=== PATIENT | female | born 1980 | race Caucasian/White ===

== ENCOUNTER → 2019-03-02 | Outpatient (CLI) | payer OTHER, SELFPAY ==
[2019-03-02 12:48] LABS: Absolute Lymphocyte Count 1.42 X10^3/ul (0.83-4.51); Absolute Neutrophil Count 4.1 X10^3/uL (2.0-7.7); Basophil# 0.03 X10^3/uL; Basophil% 0.5 % (0-1); Eosinophil# 0.19 X10^3/uL; Eosinophils% 3.1 % (0-5); Hematocrit 40.3 % (37-47); Hemoglobin 13.5 g/dl (12.0-15.0); Lymphocyte # 1.42 X10^3/ul (4.0); Mean Corp Hgb Conc 33.5 g/gl (32-36); Mean Corpuscular Hgb 30.3 pg (27.0-32.0); Mean Corpuscular Volume 90.6 fL (81-99); Monocyte# 0.45 X10^3/uL; Monocyte% 7.3 % (0-10); Neutrophil # 4.07 X10^3/uL (2.7-7.7); Neutrophil % 65.9 % (47-70); Platelet Count 211 K/mm3 (150-450); RBC Distribution Width CV 12.4 % (11.6-14.6); Red Blood Count 4.45 M/mm3 (4.2-5.4); White Blood Count 6.2 K/mm3 (4.4-11.0)
[2019-03-02 12:49] LABS: POSITIVE COUNT NO; POSITIVE DIFFERENTIAL NO; POSITIVE MORPHOLOGY NO
[2019-03-02 13:19] LABS: ALB/GLOB Ratio 1.4 RATIO (0.9-2.4); AST(SGOT) 13 U/L (15-37); Alanine Aminotransfer ALT/SGPT 17 U/L (13-56); Albumin, Serum 4.3 g/dL (3.2-5.0); Alkaline Phosphatase 44 U/L (45-117); Anion Gap 6 (5-15); BUN 13 mg/dL (7-18); BUN/Creat Ratio 16.6 RATIO (10-20); Calcium,Total 9.2 mg/dL (8.5-10.1); Chloride 105 mmol/L (98-107); Creatinine, Serum 0.78 mg/dL (0.55-1.02); EST Glomerular Filtration Rate 88 mL/min (>60); Est Glom Filt Rate - Afr Amer 106 mL/min (>60); Glucose 91 mg/dL (74-106); Potassium 3.9 mmol/L (3.5-5.1); Protein, Total 7.3 g/dL (6.4-8.2); Sodium Level 140 mmol/L (136-145)
== END | disposition home or self-care (01) ==
LOC: MFPLAB 10:22
PROVIDERS: Family Provider Family Medicine; PCP Family Medicine; Referring Provider Family Medicine; Visit Provider Family Medicine
DX: R53.81 Other malaise (principal); R53.83 Other fatigue
CPT/HCPCS: 36415; 80053; 84443; 85025

== ENCOUNTER → 2019-04-20 | Outpatient (CLI) | payer OTHER, SELFPAY | END | disposition home or self-care (01) | PROVIDERS: Family Provider Family Medicine; PCP Family Medicine; Referring Provider Family Medicine; Visit Provider Family Medicine | DX: G47.10 Hypersomnia, unspecified (principal); R53.81 Other malaise; R53.83 Other fatigue | CPT/HCPCS: 95810 ==

== ENCOUNTER → 2021-06-03 10:39 | Outpatient (CLI) | payer OTHER, SELFPAY ==
--- NOTE | 2021-06-03 11:21 | RAD_ITS ---
STUDY: X-RAY - ABDOMEN/PELVIS REASON FOR EXAM: Female, 41 years old. CONSTIPATION TECHNIQUE: AP supine and upright views of the abdomen and pelvis. COMPARISON: None. FINDINGS: Normal visualized lung bases. There is an unremarkable bowel gas pattern. There is no demonstrated free abdominal air. The visualized liver, spleen and kidneys are grossly normal in size and morphology. An IUD is seen within the pelvis. Normal visualized osseous structures. RAD/Abd Inc Decub and/or Erect IMPRESSION: Normal x-ray examination of the abdomen and pelvis. Electronically Signed: Koko Velasco MD at 14:30 EDT , Service support ,
[2021-06-03 12:08] LABS: Absolute Lymphocyte Count 1.45 X10^3/uL (0.83-4.51); Absolute Neutrophil Count 5.6 X10^3/uL (2.0-7.7); Basophil# 0.04 X10^3/uL; Basophil% 0.5 % (0-1); Eosinophil# 0.17 X10^3/uL; Eosinophils% 2.2 % (0-5); Hematocrit 44.4 % (37-47); Hemoglobin 14.5 g/dL (12.0-15.0); Lymphocyte # 1.45 X10^3/ul (0.83-4.51); Lymphocyte % 18.5 % (19-41); Mean Corp Hgb Conc 32.7 g/dL (32-36); Mean Corpuscular Hgb 29.8 pg (27.0-32.0); Mean Corpuscular Volume 91.4 fL (81-99); Mean Platelet Vol. 12.3 fl (6.2-12.0); Monocyte# 0.57 X10^3/uL; Monocyte% 7.3 % (0-10); NRBC Flagged by Analyzer 0 % (0-5); Neutrophil # 5.57 X10^3/uL (2.7-7.7); Neutrophil % 71.2 % (47-70); Platelet Count 229 K/mm3 (150-450); RBC Distribution Width CV 11.8 % (11.6-14.6); RBC Distribution Width SD 39.5 fl (35.1-43.9); Red Blood Count 4.86 M/mm3 (4.2-5.4); White Blood Count 7.8 K/mm3 (4.4-11.0)
[2021-06-03 12:22] LABS: ALB/GLOB Ratio 1.1 RATIO (0.9-2.4); AST(SGOT) 12 U/L (15-37); Alanine Aminotransfer ALT/SGPT 21 U/L (13-56); Albumin, Serum 4.3 g/dL (3.2-5.0); Alkaline Phosphatase 53 U/L (45-117); Anion Gap 6 (5-15); BUN 11 mg/dL (7-18); BUN/Creat Ratio 12.5 RATIO (10-20); Calcium,Total 9.2 mg/dL (8.5-10.1); Chloride 103 mmol/L (98-107); Creatinine, Serum 0.88 mg/dL (0.55-1.02); EST Glomerular Filtration Rate 76 mL/min (>60); Est Glom Filt Rate - Afr Amer 92 mL/min (>60); Globulin 3.8 g/dL (2.2-4.2); Glucose 94 mg/dL (74-106); Lipase 89 U/L (73-393); Protein, Total 8.1 g/dL (6.4-8.2); Sodium Level 138 mmol/L (136-145)
== END ==
PROVIDERS: PCP Family Medicine; Referring Provider Nurse Practitioner Family; Visit Provider Nurse Practitioner Family
DX: R10.9 Unspecified abdominal pain (principal)
CPT/HCPCS: 36415; 74019; 80053; 83690; 85025

== ENCOUNTER 2021-12-11 16:10 | Outpatient (CLI) | payer OTHER, SELFPAY ==
[2021-12-11 17:52] LABS: Absolute Lymphocyte Count 1.81 X10^3/uL (0.83-4.51); Absolute Neutrophil Count 5.8 X10^3/uL (2.0-7.7); Basophil# 0.03 X10^3/uL; Basophil% 0.3 % (0-1); Eosinophil# 0.28 X10^3/uL; Eosinophils% 3.3 % (0-5); Hematocrit 41.6 % (37-47); Hemoglobin 13.7 g/dL (12.0-15.0); Lymphocyte # 1.81 X10^3/ul (0.83-4.51); Mean Corp Hgb Conc 32.9 g/dL (32-36); Mean Corpuscular Hgb 30.1 pg (27.0-32.0); Mean Corpuscular Volume 91.4 fL (81-99); Mean Platelet Vol. 11.8 fl (6.2-12.0); Monocyte# 0.66 X10^3/uL; Monocyte% 7.7 % (0-10); NRBC Flagged by Analyzer 0 % (0-5); Neutrophil % 67.5 % (47-70); Platelet Count 234 K/mm3 (150-450); RBC Distribution Width SD 40.3 fl (35.1-43.9); Red Blood Count 4.55 M/mm3 (4.2-5.4); White Blood Count 8.6 K/mm3 (4.4-11.0)
[2021-12-11 18:32] LABS: ALB/GLOB Ratio 1.3 RATIO (0.9-2.4); AST(SGOT) 14 U/L (15-37); Alanine Aminotransfer ALT/SGPT 19 U/L (13-56); Albumin, Serum 4.2 g/dL (3.2-5.0); Alkaline Phosphatase 61 U/L (45-117); Anion Gap 5 (5-15); BUN 14 mg/dL (7-18); BUN/Creat Ratio 17.2 RATIO (10-20); Calcium,Total 9.4 mg/dL (8.5-10.1); Chloride 104 mmol/L (98-107); Creatinine, Serum 0.82 mg/dL (0.55-1.02); EST Glomerular Filtration Rate 83 mL/min (>60); Est Glom Filt Rate - Afr Amer 100 mL/min (>60); Globulin 3.3 g/dL (2.2-4.2); Glucose 85 mg/dL (74-106); Potassium 3.9 mmol/L (3.5-5.1); Protein, Total 7.5 g/dL (6.4-8.2); Sodium Level 138 mmol/L (136-145)
== END 2021-12-11 23:59 | disposition short-term general hospital (02) ==
LOC: MFPLAB 16:13
PROVIDERS: PCP Family Medicine; Referring Provider Family Medicine; Visit Provider Family Medicine
DX: R11.0 Nausea (principal); R51.9 Headache, unspecified
CPT/HCPCS: 36415; 80053; 85025

== ENCOUNTER → 2022-06-22 | Outpatient (CLI) | payer OTHER, SELFPAY ==
--- NOTE | 2022-06-22 16:14 | BI_ITS ---
MAMMOGRAPHY - BILATERAL SCREENING REASON FOR EXAM: Female, 42 years old. Routine annual screening examination. PERTINENT HISTORY: Aunt with breast cancer. TECHNIQUE: Digital bilateral breast destinee (3D mammographic acquisition) in the CC and MLO projections. 2-D mediolateral oblique (MLO) and craniocaudad (CC) views of both breasts were obtained. CAD: Full Field Digital Mammography with Computer Added Detection was performed. COMPARISON: None. Baseline examination. FINDINGS: Breast Composition: There are scattered areas of fibroglandular density. There are no dominant masses or suspicious calcifications. Benign-appearing bilateral axillary lymph No other significant abnormalities are identified. BI/SCRN MAMM (CAD)W/DESTINEE BILAT IMPRESSION: Negative screening mammogram. Yearly followup mammogram recommended. (A) ASSESSMENT CATEGORY: BIRADS Category 2: Benign. A letter regarding these results will be sent to the patient by the facility within 30 days. Approximately 10% of breast cancers are not detected by mammography. A normal mammogram should not delay biopsy of a clinically suspicious abnormality. [id number] Electronically Signed: Koko Velasco MD at 8:22 EDT ,
== END | disposition home or self-care (01) ==
LOC: OPBI 16:11
PROVIDERS: PCP Family Medicine; Visit Provider Family Medicine
DX: Z12.31 Encounter for screening mammogram for malignant neoplasm of breast (principal)
CPT/HCPCS: 77063; 77067

== ENCOUNTER → 2022-09-08 | Outpatient (CLI) | payer OTHER, SELFPAY ==
[2022-09-08 18:01] LABS: Mucous, Urine 0 SEEN /hpf (<or=2+); Squamous Epithelial Cells - UA 0 SEEN /hpf (5-10)
[2022-09-08 18:14] LABS: Color, Urine Yellow (Yellow); Glucose, Dipstick Normal (Normal); Ketone-Dipstick Negative (Negative); Leukocyte Esterase-Dipstick 500 /ul (Negative); Nitrite-Dipstick Positive (Negative); Occult Blood-Urine 50 /ul (Negative); Protein-Dipstick 15 mg/dl (Negative); Urine Bilirubin Dipstick Negative (Negative); Urine Clarity Sl. Cloudy (Clear); Urine Urobilinogen Normal (Normal)
[2022-09-08 18:25] LABS: Bacteria 2+ /hpf (None Seen); Red Blood Cells-Urine 0-5 SEEN /hpf (0-5); White Blood Cells 5-10 SEEN /hpf (0-5)
== END | disposition home or self-care (01) ==
PROVIDERS: PCP Family Medicine; Visit Provider Nurse Practitioner Family
DX: N39.0 Urinary tract infection, site not specified (principal)
CPT/HCPCS: 81001; 87077; 87086; 87088; 87186

== ENCOUNTER → 2023-05-19 | Outpatient (CLI) | payer OTHER, SELFPAY ==
[2023-05-19 17:38] LABS: Absolute Lymphocyte Count 1.61 X10^3/uL (0.83-4.51); Absolute Neutrophil Count 4.4 X10^3/uL (2.0-7.7); Basophil# 0.05 X10^3/uL; Basophil% 0.7 % (0-1); Eosinophil# 0.31 X10^3/uL; Eosinophils% 4.5 % (0-5); Hemoglobin 13.9 g/dL (12.0-15.0); Lymphocyte # 1.61 X10^3/ul (0.83-4.51); Lymphocyte % 23.5 % (19-41); Mean Corp Hgb Conc 32.3 g/dL (32-36); Mean Corpuscular Hgb 30.3 pg (27.0-32.0); Mean Corpuscular Volume 93.7 fL (81-99); Mean Platelet Vol. 12.1 fl (6.2-12.0); Monocyte# 0.52 X10^3/uL; Monocyte% 7.6 % (0-10); NRBC Flagged by Analyzer 0 % (0-5); Neutrophil # 4.36 X10^3/uL (2.7-7.7); Neutrophil % 63.6 % (47-70); Platelet Count 223 K/mm3 (150-450); RBC Distribution Width CV 12.1 % (11.6-14.6); RBC Distribution Width SD 41.7 fl (35.1-43.9); Red Blood Count 4.59 M/mm3 (4.2-5.4); White Blood Count 6.9 K/mm3 (4.4-11.0)
[2023-05-19 18:18] LABS: Hemoglobin A1c 5.4 % (3.8-5.6)
[2023-05-19 18:45] LABS: ALB/GLOB Ratio 1.1 RATIO (0.9-2.4); AST(SGOT) 13 U/L (15-37); Alanine Aminotransfer ALT/SGPT 20 U/L (13-56); Alkaline Phosphatase 55 U/L (45-117); Anion Gap 5 (5-15); BUN 10 mg/dL (7-18); BUN/Creat Ratio 11.6 RATIO (10-20); Calcium,Total 9.3 mg/dL (8.5-10.1); Chloride 105 mmol/L (98-107); Cholesterol 166 mg/dL (200); Creatinine, Serum 0.86 mg/dL (0.55-1.02); EST Glomerular Filtration Rate 77 mL/min (>60); Est Glom Filt Rate - Afr Amer 93 mL/min (>60); Globulin 3.8 g/dL (2.2-4.2); Glucose 101 mg/dL (74-106); High Density Lipoprotein 43 mg/dL; Potassium 3.9 mmol/L (3.5-5.1); Protein, Total 7.8 g/dL (6.4-8.2); Sodium Level 138 mmol/L (136-145); Thyroid Stim Hormone (TSH) 1.25 uIU/mL (0.358-3.74); Triglycerides 123 mg/dL; Very Low Density Lipoprotein 25 mg/dL (5-40)
== END | disposition home or self-care (01) ==
LOC: MFPLAB 15:30
PROVIDERS: PCP Family Medicine; Visit Provider Family Medicine
DX: Z00.00 Encounter for general adult medical examination without abnormal findings (principal); Z13.0 Encounter for screening for diseases of the blood and blood-forming organs and certain disorders involving the immune mechanism; Z13.29 Encounter for screening for other suspected endocrine disorder; Z13.220 Encounter for screening for lipoid disorders
CPT/HCPCS: 36415; 80053; 80061; 83036; 84443; 85025

== ENCOUNTER → 2023-06-24 | Outpatient (CLI) | payer OTHER, SELFPAY ==
--- NOTE | 2023-06-24 10:45 | BI_ITS ---
MAMMOGRAPHY - BILATERAL SCREENING REASON FOR EXAM: Female, 43 years old. Routine annual screening examination. PERTINENT HISTORY: Aunt with breast cancer. TECHNIQUE: Digital bilateral breast destinee (3D mammographic acquisition) in the CC and MLO projections. 2-D mediolateral oblique (MLO) and craniocaudad (CC) views of both breasts were obtained. CAD: Full Field Digital Mammography with Computer Added Detection was performed. COMPARISON: Comparison is made with prior study dated June 22, 2022. FINDINGS: Breast Composition: There are scattered areas of fibroglandular density. There are no dominant masses or suspicious calcifications. Stable small bilateral axillary lymph nodes. No other significant abnormalities are identified. There has been no significant change since the prior study. BI/SCRN MAMM (CAD)W/DESTINEE BILAT IMPRESSION: Stable bilateral screening mammogram. Yearly follow-up mammogram recommended. (A) ASSESSMENT CATEGORY: BIRADS Category 2: Benign. A letter regarding these results will be sent to the patient by the facility within 30 days. Approximately 10% of breast cancers are not detected by mammography. A normal mammogram should not delay biopsy of a clinically suspicious abnormality. [id number] Electronically Signed: Koko Velasco MD at 12:46 EDT ,
== END | disposition home or self-care (01) ==
PROVIDERS: PCP Family Medicine; Referring Provider Family Medicine; Visit Provider Family Medicine
DX: Z12.31 Encounter for screening mammogram for malignant neoplasm of breast (principal)
CPT/HCPCS: 77063; 77067

== ENCOUNTER 2023-12-22 16:30 | Outpatient (RCR) | payer OTHER, SELFPAY ==
--- NOTE | 2023-11-17 17:40 | HP.PTEVAL_ITS ---
Patient's Visit Information Visit Information Visit Information: NELA CALLES is a 43 year old F referred to Physical Therapy by Dr. Wes Rowell MD with a diagnosis of B knee pain.R>L. Date of Evaluation: 11/17/23 Physical Therapist: Edd Wilder, DPT, OCS, CSCS Visit Plan Frequency: 3x /Week Duration: 4-6 Weeks Plan: 3x/week for 4-6 weeks as needed for. 1. ext ROM attempting full ext without pain, HS stretch 2. WB strength B knees and hips to tolerance, progress to functional and gym return to skiing, funciton of steps, squatting as tolerated by R knee. ice as needed. Monitor tolerance to full extension Given QS, HS and SLRx3 for HEP 2x/day monitor for meniscal tear evidence Subjective Subjective: Injured self skiing in [place] 10/30(was just walking in skis and splits). Next day getting out of bed very painful and needed help to bathroom and hard time standing. ER x ray and no fractures. Gave braces and meds and felt good. A week later weaned off meds and braces. Now doing all daily duties but is feeling weak on uneven surface. No real pain now. Limps a little. R knee is the problem although both hurt at first. 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 Avoids skiing. Basic ADLs are all fine, might be unstable at times. No regular exercises. Wants to get back on slopes. dr. Rowell thinks she is Ok in the MCL but suspicious of meniscus L knee 95% better. Objective Objective: R knee hurts to fully extend and she avoids this in her gait pattern and exercises. Can walk normally otherwise. trasnfers I bed and chair. Steps are reciprocal but poor strength adn confidence descending with R. AROM R knee0-140 and L knee 0-142, no pain end flexion but pain and protective of full extension. + bounce home, - ant drawer, - post sag, - pivot shift, - valgus and varus. all on R, L is OK. patella moves well adn without much pain. HS mod tight at -20 90/90 test, no problem in quad. reflexes 2/3 patella and achilles sensation LE WNL to gross light touch. strength is 3+ R knee ext adn 4- R knee flexion and 4/5 L knee hip is 3+ abd and ext and 4- flexion without pain B. ankles are 4+ B without pain. Balance/Special Test Scores Lower Extremity Functional Score: 67 Goals Goal 1:: Full aROM R knee without pain or protectiveness. Goal Time Frame: 4-6 Weeks Goal 2:: patient descend steps without hesitation or weakness. Goal Time Frame: 4-6 Weeks Goal 3:: I approp HEP to limit future problems Goal Time Frame: 4-6 Weeks Goal 4:: pt feel 99% better and activities, 78 LEFFS Goal Time Frame: 4-6 Weeks Goal 5:: Plan to return to skiing Goal Time Frame: 4-6 Weeks Rehabilitation Potential Physical Therapy Diagnosis: R knee pain limiting confidence and function. Rehabilitation Potential: Fair Anticipated Interventions Patient/Client Instruction: Educate patient on: Condition and Risk Factors For the Purpose of:: To decrease pain, To decrease swelling/inflammation, To increase ROM, To improve nutrient delivery to tissue, To improve muscle performance and motor function and To increase tolerance to activity/condition/position Therapeutic Exercise to Include: Strength training, Balance training, Flexibilty training and Gait and locomotor training Comment: return to sport For the Purpose of:: To decrease pain, To decrease swelling/inflammation, To increase ROM, To improve nutrient delivery to tissue, To improve muscle performance and motor function and To increase tolerance to activity/condition/position Manual Therapy Techniques to Include: Passive ROM For the Purpose of:: To decrease pain, To decrease swelling/inflammation and To improve nutrient delivery to tissue Cryotherapy (ice pack, ice massage): Yes For the Purpose of:: To decrease pain, To decrease swelling/inflammation and To improve nutrient delivery to tissue Text: Thank you for the opportunity to evaluate your patient. For Medicare and Medicare HMO plans, please review the plan of care and approve it. It will need to be FAXED BACK to us at [phone] for Medicare purposes. For Medicare only, by signing this I certify the plan of care. Please let me know if there are questions or concerns regarding this plan of care. Physician Signature: Date:
--- NOTE | 2023-12-22 17:09 | HP.PTDCSUM ---
Discharge Summary D/C summary: It has been my pleasure to treat NELA CALLES referred by Dr. Wes Rowell MD, with the diagnosis of B knee pain.R>L for a total of 13 visit(s). Discharge Date: 12/22/23 Please see the following information for a summary of their discharge status. Subjective Subjective: Has been skiing and it was fine on the knee. Skiied for 3 hours and was fine. Will continue workout 2x/week. Pain R knee: Pain Intensity (Out of 10): 0 Overall Improvement % Improvement: 100 Objective Objective/Function: Doing great 100% better, full ROM, skiiing without difficulty and will continue workout in gym 2x/week. Goals Goal 1:: Full aROM R knee without pain or protectiveness. Goal Progress: Goal Met Goal 2:: patient descend steps without hesitation or weakness. Goal Progress: Goal Met Goal 3:: I approp HEP to limit future problems Goal Progress: Goal Met Goal 4:: pt feel 99% better and activities, 78 LEFFS Goal Progress: 100 Goal 5:: Plan to return to skiing Goal Progress: Goal Met Plan Plan: d/c D/C Information Discharge Comments: Doing well and will continue gym exercises. Will contact doctor if pain returns. d/c sentence: If there are questions or concerns regarding this patient's physical therapy, please feel free to call me at [phone]. Thank you for the referral of this patient. Sincerely, Edd Wilder, DPT, OCS, CSCS Balance/Gait/Functional tests Balance/Special Test Scores Lower Extremity Functional Score: 80 Improvement % Improvement: 100
== END 2023-12-22 19:00 | disposition home or self-care (01) ==
LOC: PT 16:30
PROVIDERS: PCP Family Medicine; Referring Provider Orthopaedic Surgery Sports Medicine; Visit Provider Orthopaedic Surgery Sports Medicine
DX: M25.561 Pain in right knee (principal); M25.562 Pain in left knee
CPT/HCPCS: 97110; 97113; 97161; 97530

== ENCOUNTER → 2024-06-26 | Outpatient (CLI) | payer OTHER, SELFPAY ==
--- NOTE | 2024-06-26 07:51 | BI_ITS ---
MAMMOGRAPHY - BILATERAL SCREENING REASON FOR EXAM: Female, 44 years old. Routine annual screening examination. PERTINENT HISTORY: Aunt with breast cancer. TECHNIQUE: Digital bilateral breast destinee (3D mammographic acquisition) in the CC and MLO projections. 2-D mediolateral oblique (MLO) and craniocaudad (CC) views of both breasts were obtained. CAD: Full Field Digital Mammography with Computer Added Detection was performed. COMPARISON: Comparison is made with prior study dated June 24, 2023 and June 22, 2022. FINDINGS: Breast Composition: There are scattered areas of fibroglandular density. There are no dominant masses or suspicious calcifications. Stable small bilateral benign appearing axillary lymph nodes. No other significant abnormalities are identified. There has been no significant change since the prior study. BI/SCRN MAMM (CAD)W/DESTINEE BILAT IMPRESSION: Stable bilateral screening mammogram. Yearly follow-up mammogram recommended. (A) ASSESSMENT CATEGORY: BIRADS Category 2: Benign. A letter regarding these results will be sent to the patient by the facility within 30 days. Approximately 10% of breast cancers are not detected by mammography. A normal mammogram should not delay biopsy of a clinically suspicious abnormality. [id number] Electronically Signed: Koko Velasco MD at 8:31 EDT ,
== END | disposition home or self-care (01) ==
LOC: OPBI 07:50
PROVIDERS: PCP Nurse Practitioner Family; Referring Provider Nurse Practitioner Family; Visit Provider Nurse Practitioner Family
DX: Z12.31 Encounter for screening mammogram for malignant neoplasm of breast (principal)
CPT/HCPCS: 77063; 77067

== ENCOUNTER → 2024-11-27 | Outpatient (CLI) | payer OTHER, SELFPAY ==
[2024-11-27 10:57] LABS: Absolute Lymphocyte Count 1.75 X10^3/uL (0.83-4.51); Absolute Neutrophil Count 5.1 X10^3/uL (2.0-7.7); Basophil# 0.06 X10^3/uL; Basophil% 0.8 % (0-1); Eosinophil# 0.22 X10^3/uL; Eosinophils% 2.9 % (0-5); Hemoglobin 14.4 g/dL (12.0-15.0); Lymphocyte # 1.75 X10^3/ul (0.83-4.51); Lymphocyte % 22.8 % (19-41); Mean Corp Hgb Conc 33.5 g/dL (32-36); Mean Corpuscular Hgb 30.5 pg (27.0-32.0); Mean Corpuscular Volume 91.1 fL (81-99); Mean Platelet Vol. 11.4 fl (6.2-12.0); Monocyte# 0.53 X10^3/uL; Monocyte% 6.9 % (0-10); NRBC Flagged by Analyzer 0 % (0-5); Neutrophil # 5.11 X10^3/uL (2.7-7.7); Neutrophil % 66.3 % (47-70); Platelet Count 235 K/mm3 (150-450); RBC Distribution Width CV 12.2 % (11.6-14.6); RBC Distribution Width SD 40.3 fl (35.1-43.9); Red Blood Count 4.72 M/mm3 (4.2-5.4); White Blood Count 7.7 K/mm3 (4.4-11.0)
[2024-11-27 11:28] LABS: T3 Total - Triiodothyronine 0.91 ng/mL (0.6-1.81)
[2024-11-27 11:34] LABS: T4 Total, Thyroxin 9.8 ug/dL (4.8-13.9)
[2024-11-28 08:10] LABS: Thyroid Peroxidase AB 14 IU/mL (0-34)
== END | disposition home or self-care (01) ==
PROVIDERS: PCP Nurse Practitioner Family
DX: H40.053 Ocular hypertension, bilateral (principal)
CPT/HCPCS: 36415; 84436; 84443; 84480; 85025; 86376

== ENCOUNTER → 2025-07-01 | Outpatient (CLI) | payer OTHER, SELFPAY ==
[2025-07-01 17:47] LABS: Hematocrit 35.7 % (37-47); Hemoglobin 12.1 g/dL (12.0-15.0); Immature Granulocytes Count 0.030 X10^3/uL (0.0-0.0); Mean Corp Hgb Conc 33.9 g/dL (32-36); Mean Corpuscular Volume 89.9 fL (81-99); Mean Platelet Vol. 12.1 fl (6.2-12.0); NRBC Flagged by Analyzer 0 % (0-5); Platelet Count 168 K/mm3 (150-450); RBC Distribution Width CV 11.9 % (11.6-14.6); RBC Distribution Width SD 39.4 fl (35.1-43.9); Red Blood Count 3.97 M/mm3 (4.2-5.4); White Blood Count 6.6 K/mm3 (4.4-11.0)
[2025-07-01 18:17] LABS: AST(SGOT) 23 U/L (<=31); Alanine Aminotransfer ALT/SGPT 25 U/L (<=34); Albumin, Serum 4.0 g/dL (3.5-5.0); Alkaline Phosphatase 60 U/L (35-104); Anion Gap 11 (5-15); BUN 13 mg/dL (4-19); BUN/Creat Ratio 15.5 RATIO (10-20); CRP 13.50 mg/L (0.0-3.0); Calcium,Total 9.1 mg/dL (7.6-11.0); Carbon Dioxide 25.3 mmol/L (21.0-32.0); Chloride 104 mmol/L (98-108); Globulin 2.9 g/dL (2.2-4.2); Glucose 93 mg/dL (70-99); Potassium 3.7 mmol/L (3.3-5.1)
== END | disposition home or self-care (01) ==
LOC: BFHLAB 15:40
PROVIDERS: PCP Nurse Practitioner Family; Referring Provider Nurse Practitioner Family; Visit Provider Nurse Practitioner Family
DX: M25.50 Pain in unspecified joint (principal); R19.7 Diarrhea, unspecified
CPT/HCPCS: 36415; 80053; 85025; 85652; 86140

== ENCOUNTER 2025-07-02 09:05 | Outpatient (CLI) | payer OTHER, SELFPAY ==
--- OUTSIDE RECORDS SUMMARY | 2025-07-02 10:44 | XMS RPT_ITS | CCD ---
Author Organization [facility] Care Team Providers Care Rumper Name Role Phone Alyx Ashley Primary Care Provider [phone] DO Aditi Almaraz Primary Care Provider DO Aditi Almaraz Referring Provider [phone] MD Wes Rowell Attending Provider Dr. Eduardo Li Attending Provider ALYX ASHLEY Primary Care Unavailable VIJAY SORIANO CNP Attending Unavailable NO FAMILY PHYSICIAN, 837 Primary Care Unavail able VIJAY SORIANO CNP Attending Unavailable ALYX ASHLEY Primary Care Unavailable Wallace SNOW-CIlana Primary Care Provider [phone] SEPIDEH MORTON Attending Provider [phone] Ilana Gonsalez Attending Unavailable Ilana Gonsalez Referring Unavailable Ilana Gonsalez Primary Care Unavailable CELSO HOFFMAN Attending Unavailable Ilana Gonsalez Primary Care Unavailable Allergies Allergy Classification Reported Allergen(s) Allergy Type Date of Onset Reaction(s) Facility (4 sources) Penicillins; Translations: [Penicillins] Drug Allergy 04-10-[address] [facility] Medications Current Medications Medication Drug Class(es) Dates Sig (Normalized) Sig (Original) sertraline 100 mg oral tablet (2 sources) Serotonin Reuptake Inhibitor Start: 11-10-2023 Sertraline 100 mg tablet Active 100 mg PO November 10, 2023 1:00am Completed/Discontinued Medications Medication Drug Class(es) Dates Sig (Normalized) Sig (Original) copper (PARAGARD T 380A) 380 square mm IUD (1 source) copper (PARAGARD T 380A) 380 square mm IUD by INTRAUTERINE route. 0 Active Comment on above: by INTRAUTERINE rout e. ibuprofen 600 mg oral tablet (1 source) Nonsteroidal Anti-inflammatory Drug Start: 04-12-2016 take 1 tablet by mouth every six hours as needed ibuprofen (MOTRIN) 600 mg tablet Take 1 tablet by mouth every 6 hours as needed. 40 tablet 0 04/12/2016 Active Comment on above: Take 1 tablet by tobi th every 6 hours as needed. multivitamin tablet (1 source) take 1 tablet by mouth once daily multivitamin tablet Take 1 tablet by mouth once daily. 0 Active Comment on above: Take 1 tablet by tobi th once daily. Problems Active Problems Problem Classification Problem Date Documented Date Episodic/Chronic Contraceptive and procreative management (1 source) Intrauterine contraceptive device in situ; Translations: [Encounter for routine checking of intrauterine contraceptive device (IUD)] Onset: 02-28-2019 02-28-2019 Glaucoma (1 source) Ocular hypertension, bilateral; Translations: [Ocular hypertension, bilateral] Onset: 02-15-2025 Chronic Other non-traumatic joint disorders (5 sources) Pain in left knee; Translations: [Left knee pain] 11-10-2023 Episodic Other non-traumatic joint disorders (1 source) Pain in right knee; Translations: [Pain in joint, lower leg] 11-10-2023 Episodic Unclassified (1 source) Patient encounter status; Translations: [Routine cervical smear] Onset: 11-30-2016 11-30-2016 Unclassified (1 source) Sebaceous cyst of skin; Translations: [Sebaceous cyst] Onset: 05-03-2017 05-03-2017 Past or Other Problems Problem Classification Problem Date Documented Da te Episodic/Chronic Complication of device; implant or graft (1 source) IUD threads lost; Translations: [IUD strings lost] Onset: 11-30-2016 11-30-2016 Episodic Early or threatened labor (1 source) Premature uterine contraction; Translations: [ uterine contractions in third trimester, antepartum] Onset: 04-10-2016 04-10-2016 Episodic Gastrointestinal hemorrhage (1 source) Rectal hemorrhage; Translations: [Rectal bleeding] Onset: 03-06-2014 03-06-2014 Episodic Inflammatory diseases of female pelvic organs (1 source) Acute vaginitis; Translations: [Acute vaginitis] Onset: 11-30-2016 11-30-2016 Episodic Other female genital disorders (1 source) Cyst of vulva; Translations: [Inclusion cyst of vulva] Onset: 05-03-2017 05-03-2017 Episodic Other and delivery including normal (2 sources) ; Translations: [] Onset: 03-06-2014 04-11-2016 Episodic Other screening for suspected conditions (not mental disorders or infectious disease) (1 source) Encounter for screening mammogram for malignant neoplasm of breast; Translations: [Encounter for screening mammogram for malignant neoplasm of breast] Onset: 07-17-2024 Episodic Residual codes; unclassified (1 source) H/O: section; Translations: [Previous section complicating ] Onset: 04-10-2016 04-10-2016 Episodic Results Test Name Value Interpretation Reference Range Facility Thyroid Peroxidase ABon 11-14 THYR PEROX AB 14 IU/mL Normal 0-34 [facility] Comment on above: Result Comment: Perf ormed at: - [facility] [address] [id number] [employer] Bus Driver: Moncho Villaseñor PhD, Phone: [phone] Performed By: #### L 501.9186, L3300.6900, L100.0100, L501.9310, L501.9520 #### [facility] [address] [place], [place], [id number] Absolute neutrophil counton 11-27-2024 Neutrophils (Bld) [#/Vol] 5.1 10*3/uL 2.0-7.7 [facility] Basophil percentageon 2024 Basophils/100 WBC (Bld) 0.8 % 0-1 [facility] CBC W/Diff, Automatedon 11-14 Absolute Lymph 1.75 X10 3/uL Normal 0.83-4.51 [facility] Comment on above: Performed By: #### L 501.9186, L3300.6900, L100.0100, L501.9310, L501.9520 #### [facility] [address] [facility] [place], [place], [id number] [phone] Absolute Neut 5.1 X10 3/uL Normal 2.0-7.7 [facility] Comment on above: Performed By: #### L 501.9186, L3300.6900, L100.0100, L501.9310, L501.9520 #### [facility] [address] [place], [address] Basophils/100 WBC (Bld) 0.8 % Normal 0-1 [facility] Comment on above: Performed By: #### L 501.9186, L3300.6900, L100.0100, L501.9310, L501.9520 #### [facility] [address] [place], [address] Eosinophils/100 WBC (Bld) 2.9 % Normal 0-5 [facility] Comment on above: Performed By: #### L 501.9186, L3300.6900, L100.0100, L501.9310, L501.9520 #### [facility] [address] [place], [address] Erythrocyte distribution width (RBC) [Ratio] 12.2 % Normal 11.6-14.6 [facility] Comment on above: Performed By: #### L 501.9186, L3300.6900, L100.0100, L501.9310, L501.9520 #### [facility] [address] [place], [address] Hematocrit (Bld) [Volume fraction] 43.0 % Normal 37-47 [facility] Comment on above: Performed By: #### L 501.9186, L3300.6900, L100.0100, L501.9310, L501.9520 #### [facility] [address] [place], [address] Hemoglobin (Bld) [Mass/Vol] 14.4 g/dL Normal 12.0-15.0 [facility] Comment on above: Performed By: #### L 501.9186, L3300.6900, L100.0100, L501.9310, L501.9520 #### [facility] [address] [place], [address] IG% 0.300 Normal 0.0-0.9 [facility] Comment on above: Result Comment: IG% - Immature Granulocytes (promyelocytes, myelocytes and metamyelocytes) > 1% indicates that a LEFT SHIFT is Present. Performed By: #### L 501.9186, L3300.6900, L100.0100, L501.9310, L501.9520 #### [facility] [address] [place], [address] Lymphocytes/100 WBC (Bld) 22.8 % Normal 19-41 [facility] Comment on above: Performed By: #### L 501.9186, L3300.6900, L100.0100, L501.9310, L501.9520 #### [facility] [address] [place], [address] MCH (RBC) [Entitic mass] 30.5 pg Normal 27.0-32.0 [facility] Comment on above: Performed By: #### L 501.9186, L3300.6900, L100.0100, L501.9310, L501.9520 #### [facility] [address] [place], [address] MCHC (RBC) [Mass/Vol] 33.5 g/dL Normal 32-36 [facility] Comment on above: Performed By: #### L 501.9186, L3300.6900, L100.0100, L501.9310, L501.9520 #### [facility] [address] [place], [address] MCV (RBC) [Entitic vol] 91.1 fL Normal 81-99 [facility] Comment on above: Performed By: #### L 501.9186, L3300.6900, L100.0100, L501.9310, L501.9520 #### [facility] [address] [place], [address] Monocytes/100 WBC (Bld) 6.9 % Normal 0-10 [facility] Comment on above: Performed By: #### L 501.9186, L3300.6900, L100.0100, L501.9310, L501.9520 #### [facility] [address] [place], [address] Neutrophils/100 WBC (Bld) 66.3 % Normal 47-70 [facility] Comment on above: Performed By: #### L 501.9186, L3300.6900, L100.0100, L501.9310, L501.9520 #### [facility] [address] [place], [address] Nucleated RBC (Bld) [#/Vol] 0 10*3/uL Normal 0-5 [facility] Comment on above: Performed By: #### L 501.9186, L3300.6900, L100.0100, L501.9310, L501.9520 #### [facility] [address] [place], [address] Platelet mean volume (Bld) [Entitic vol] 11.4 fL Normal 6.2-12.0 [facility] Comment on above: Performed By: #### L 501.9186, L3300.6900, L100.0100, L501.9310, L501.9520 #### [facility] [address] [place], [address] Platelets (Bld) [#/Vol] 235 10*3/uL Normal 150-450 [facility] Comment on above: Performed By: #### L 501.9186, L3300.6900, L100.0100, L501.9310, L501.9520 #### [facility] [address] [place], [address] RBC (Bld) [#/Vol] 4.72 10*6/uL Normal 4.2-5.4 [facility] Comment on above: Performed By: #### L 501.9186, L3300.6900, L100.0100, L501.9310, L501.9520 #### [facility] [address] [place], [address] RDW SD 40.3 fl Normal 35.1-43.9 [facility] Comment on above: Performed By: #### L 501.9186, L3300.6900, L100.0100, L501.9310, L501.9520 #### [facility] [address] [place], [address] WBC (Bld) [#/Vol] 7.7 10*3/uL Normal 4.4-11.0 [facility] Comment on above: Performed By: #### L 501.9186, L3300.6900, L100.0100, L501.9310, L501.9520 #### [facility] [address] [place], [address] Eosinophil percentageon 11-14 Eosinophils/100 WBC (Bld) 2.9 % 0-5 [facility] Erythrocyte distribution wid th (RBC) [Ratio]on 11-27-2024 Erythrocyte distribution width (RBC) [Entitic vol] 40.3 fL 35.1-43.9 [facility] Erythrocyte distribution wid th ratioon 11-27-2024 Erythrocyte distribution width (RBC) [Ratio] 12.2 % 11.6-14.6 [facility] Hematocrit Auto (Bld) [Volum e fraction]on 11-27-2024 Hematocrit (Bld) [Volume fraction] 43.0 % 37-47 [facility] Hemoglobin measurementon Hemoglobin (Bld) [Mass/Vol] 14.4 g/dL 12.0-15.0 [facility] Immature granulocytes/100 WB C Auto (Bld)on 11-27-2024 Immature granulocytes/100 WBC (Bld) 0.300 % 0.0-0.9 [facility] Comment on above: IG% - Immature Granu locytes (promyelocytes, myelocytes and metamyelocytes) > 1% indicates that a LEFT SHIFT is Present. Lymphocytes Auto (Unsp spec) [#/Vol]on 11-27-2024 Lymphocytes (Bld) [#/Vol] 1.75 10*3/uL 0.83-4.51 [facility] Lymphocytes/100 WBC Auto (Un sp spec)on 11-27-2024 Lymphocytes/100 WBC (Bld) 22.8 % 19-41 [facility] MCV (mean corpuscular volume ) determinationon 11-27-2024 MCV (RBC) [Entitic vol] 91.1 fL 81-99 [facility] Mean corpuscular hemoglobin (MCH) determinationon 11-27-2024 MCH (RBC) [Entitic mass] 30.5 pg 27.0-32.0 [facility] Mean corpuscular hemoglobin concentration (MCHC) determinationon 11-27-2024 MCHC (RBC) [Mass/Vol] 33.5 g/dL 32-36 [facility] Mean platelet volume determi nationon 11-27-2024 Platelet mean volume (Bld) [Entitic vol] 11.4 fL 6.2-12.0 [facility] Monocyte percentageon 2024 Monocytes/100 WBC (Bld) 6.9 % 0-10 [facility] Neutrophil percentageon 11-14 Neutrophils/100 WBC (Bld) 66.3 % 47-70 [facility] Nucleated red blood cell per centageon 11-27-2024 Nucleated RBC/100 WBC (Bld) [Ratio] 0 % 0-5 [facility] Platelet counton 11-27-2024 Platelets (Bld) [#/Vol] 235 10*3/uL 150-450 [facility] RBC Auto (Bld) [#/Vol]on RBC (Bld) [#/Vol] 4.72 10*6/uL 4.2-5.4 [facility] Serum or plasma thyroxine (T 4) measurement (mass/volume)on 11-27-2024 T4 [Mass/Vol] 9.8 ug/dL 4.8-13.9 [facility] T3 IA [Mass/Vol]on Total Triiodothyronine 0.91 ng/mL 0.6-1.81 [facility] T3 Total - Triiodothyronineo n 11-27-2024 T3 Total 0.91 ng/mL Normal 0.6-1.81 [facility] Comment on above: Performed By: #### L 501.9186, L3300.6900, L100.0100, L501.9310, L501.9520 #### [facility] [address] [place], [place], [id number] T4 Total, Thyroxinon 025 T4 [Mass/Vol] 9.8 ug/dL Normal 4.8-13.9 [facility] Comment on above: Performed By: #### L 501.9186, L3300.6900, L100.0100, L501.9310, L501.9520 #### [facility] [address] [place], [place], [id number] TPO Ab Qnon 11-27-2024 Thyroid Peroxidase Antibodies 14 IU/mL 0-34 [facility] Comment on above: Performed at: [address] [id number] Director: Moncho Villaseñor PhD, Phone: [phone] TSH Qnon 11-27-2024 Thyroid Stimulating Hormone (TSH) 1.700 uIU/mL 0.358-3.740 [facility] Thyroid Stim Hormone (TSH)on 11-27-2024 TSH 1.700 uIU/mL Normal 0.358-3.740 [facility] Comment on above: Performed By: #### L 501.9186, L3300.6900, L100.0100, L501.9310, L501.9520 #### [facility] [address] [place], [place], [id number] White blood cell (WBC) count on 11-27-2024 WBC (Bld) [#/Vol] 7.7 10*3/uL 4.4-11.0 [facility] SCRN MAMM (CAD)W/DESTINEE BILATo n 06-26-2024 SCRN MAMM (CAD)W/DESTINEE BILAT [facility] Imaging Services [address] [address] SCRN MAMM (CAD)W/DESTINEE BILAT MR#: [id number] Acct: [id number] Name: YUE HIGHTOWER Rep #: [id number] : 1980 F 44 From: Koko nazario MD PCP: LYUDMILA Gleason Status: [facility] Study: SCRN MAMM (CAD)W/DESTINEE BILAT Date of Exam: 06/14 02/04 Exam# [id number] Ordering Dr: Ilana Gonsalez [id number] MAMMOGRAPHY - BILATERAL SCREENING REASON FOR EXAM: Female, 44 years old. Routine annual screening examination. PERTINENT HISTORY: Aunt with breast cancer. TECHNIQUE: Digital bilateral breast destinee (3D mammographic acquisition) in the CC and MLO projections. 2-D mediolateral oblique (MLO) and craniocaudad (CC) views of both breasts were obtained. CAD: Full Field Digital Mammography with Computer Added Detection was performed. COMPARISON: Comparison is made with prior study dated June 24, 2023 and June 22, 2022. FINDINGS: Breast Composition: There are scattered areas of fibroglandular density. There are no dominant masses or suspicious calcifications. Stable small bilateral benign appearing axillary lymph nodes. No other significant abnormalities are identified. There has been no significant change since the prior study. BI/SCRN MAMM (CAD)W/DESTINEE BILAT IMPRESSION: Stable bilateral screening mammogram. Yearly follow-up mammogram recommended. (A) ASSESSMENT CATEGORY: BIRADS Category 2: Benign. A letter regarding these results will be sent to the patient by the facility within 30 days. Approximately 10% of breast cancers are not detected by mammography. A normal mammogram should not delay biopsy of a clinically suspicious abnormality. [id number] Electronically Signed: Koko Velasco MD at 8:31 EDT , CC: LYUDMILA Gonsalez Telephone Clerks Supervisor: Signed Normal [facility] Physician Progress No peg 01-02-2024 [facility] Physician Progress Note YUE HIGHTOWER :1980 Registration Date:01/02/2024 Assessment/Plan This Visit Diagnosis 1. Encounter for annual routine gynecological examination Z01.419 pap/hpv neg 11/2022 MVI exercise f/u 1 yr and prn Ordered: AMB Preventive Est Age 40-64 [id number], 01/02/2024 08:24:00 EST, Encounter for annual routine gynecological examination / Screening mammogram, encounter for / IUD check up 2. Screening mammogram, encounter for Z12.31 order placed for mammogram Ordered: AMB Preventive Est Age 40-64 [address], 01/02/2024 08:24:00 EST, Encounter for annual routine gynecological examination / Screening mammogram, encounter for / IUD check up MAMM DIGITAL SCRN BILATERAL, 01/02/2024, Routine, SCREENING, Ambulatory, Screening mammogram, encounter for 3. IUD check up Z30.431 iud strings seen was replaced 04/2023 Ordered: AMB Preventive Est Age 40-64 [address], 01/02/2024 08:24:00 EST, Encounter for annual routine gynecological examination / Screening mammogram, encounter for / IUD check up Medication Reconciliation What How Much When Instructions Unchanged levonorgestrel (Mirena 52 mg intrauterine device) 1 Each Intrauteral ONCE Duration: 1 Doses Contact prescribing physician if questions or concerns Unchanged sertraline (sertraline 100 mg oral tablet) Contact prescribing physician if questions or concerns What How Much When Comments Stop Taking miSOPROStol (Cytotec 200 mcg oral tablet) See instructions 1 tabs ORAL evening prior to procedure and in AM of procedure Chief Complaint Here for annual- No concerns. Mirena inserted 04/26/2023- NO periods, only spotting History of Present Illness 43 year old here for annual gynecologic exam. Current with PCP Boys are 7 and 9 yo Menses: light spotting rarely on Mirena Contraception Current Method: Mirena-replaced in April 2023 Sexual activity: no new partners Dyspareunia/vaginal concerns: none Cervical Cytology Last Pap/HPV neg 12/02/22 History of abnormal pap: none Breasts Denies breast pain, lumps, skin changes or discharge Mammogram Mammogram: benign 06/24/23 Fam hx breast cancer: none Bowel/Bladder Denies any urinary urgency, rare stress incontinence, no dysuria. 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 No signs of apparent distress present. Speech is clear and appropriate. Patient is cooperative. VS reviewed and stable Neck: supple and no thyromegaly Respiratory: Chest expansion is adequate bilaterally. Cardiovascular: Normal rate/ryhthm, no murmur or extra sounds Abdomen: Soft and Non-tender, Non distended Ext: No C/C/E Skin: Warm and dry with no evidence of unusual rashes or suspicious lesions. Neurological: Alert and oriented x 3. Mood is normal. Extremities: No clubbing, Cyanosis or edema COPY EDITOR EXAM: Breast exam: normal bilateral breast tissue, no skin changes no masses and no nipple discharge Pelvic Exam: Ext Gen: normal Vulva anatomy no rash Urethra: normal Perineum: no lesions and intact Vagina: vaginal mucosa healthy pink Cervix: no CMT, no lesions, normal appearance- iud strings seen Bladder: non tender on palpation Uterus: normal size and mobile midline, NT adnexa: NT and no masses COPY EDITOR Additional Details-Patient Stated Menstrual History Menstrual StatusProphylaxis COPY EDITOR Screening Date of Last Pap Smear 12/02/2022 Last Pap Result, Pt StatedNegative Last Pap Result CommentNeg HPV Last Mammography Result, Pt StatedBenign Last Mammography Result CommentCat 2 Benign Contraception Contraception MethodIUD IUD TypeMirena IUD Insertion Date04/26/2023 (LOT#: [id number]) IUD Expiration Date04/26/2031 OB History History (1,1,0,2) # 1 Baby 1 Outcome Date: 07/2014 Outcome or Result: Gest Age: 40 weeks Outcome: Live Sex: Male Wt: 3345 g Hospital: Dr[facility] # 2 Baby 1 Outcome Date: 04/11/2016 Outcome or Result: Gest Age: 34 weeks 1 days Outcome: Live Sex: Male Wt: 2438 g Hospital: [place] Problem List/Past Medical History Ongoing Acne Anemia Anxiety IUD check up PFD (pelvic floor dysfunction) Vulvar vestibulitis Historical Procedure/Surgical History Mammogram: Cat 2 Benign: 06/24/23 Mirena insertion (LOT# [id number]): 04/26/23 Pap: Neg w/Neg HPV: 12/02/22 : 2013 carpal tunnel release: 2012 wisdom teeth: 2011 lipoma resection: 1998 (more content not included)... Normal [facility] Ambulatory Clinical Summaryo n 01-02-2024 Ambulatory Clinical Summary YUE HIGHTOWER :1980 Registration Date:01/02/2024 Ambulatory Visit Instructions Your Diagnosis Encounter for annual routine gynecological examination Screening mammogram, encounter for IUD check up Your Care Team Attending Physician - VIJAY SORIANO CNP Primary Care Physician - LEONARDO FAMILY PHYSICIAN, 837 Procedures Performed Mammogram: Cat 2 Benign (06/24/2023) Mirena insertion (LOT# [id number]) (04/26/2023) Pap: Neg w/Neg HPV (12/02/2022) (2013) carpal tunnel release (2012) wisdom teeth (2011) lipoma resection (1998) Discharge Vitals Blood Pressure 128/82 Height 59.06 in (150 cm) Weight 147.07 lb (66.7 kg) BMI 29.64 Systolic Blood Pressure: 128 mmHg (01/02/24 07:56:00) Diastolic Blood Pressure: 82 mmHg (01/02/24 07:56:00) Mean Arterial Pressure: 97 mmHg (01/02/24 07:56:00) Height/Length Measured: 150 cm (01/02/24 07:56:00) Weight Measured: 66.7 kg (01/02/24 07:56:00) Body Mass Index Measured: 29.64 kg/m2 (01/02/24 07:56:00) Ht/Wt Measurement Refused by Patient?2: No (01/02/24 07:56:00) What to do next Scheduled Follow-Up Appointments No results You Need to Schedule the Following Appointments MAMM DIGITAL SCRN BILATERAL, 01/02/2024, Routine, SCREENING, Ambulatory, Screening mammogram, encounter for Medications What How Much When Instructions Unchanged levonorgestrel (Mirena 52 mg intrauterine device) 1 Each Intrauteral ONCE Duration: 1 Doses Unchanged miSOPROStol (Cytotec 200 mcg oral tablet) See instructions 1 tabs ORAL evening prior to procedure and in AM of procedure Unchanged sertraline (sertraline 100 mg oral tablet) Allergies Augmentin hives penicillin hives Problems Ongoing - Any problem that you are currently receiving treatment for. Acne Anemia Anxiety IUD check up PFD (pelvic floor dysfunction) Vulvar vestibulitis Common Emergency Awareness Tips IS IT A STROKE? Act FAST and Check for these signs: FACE Does the face look uneven? ARM Does one arm drift down? SPEECH Does their speech sound strange? TIME Call at any sign of stroke Heart Attack Signs Chest discomfort: Most heart attacks involve discomfort in the center of the chest and lasts more than a few minutes, or goes away and comes back. It can feel like uncomfortable pressure, squeezing, fullness or pain. Discomfort in upper body: Symptoms can include pain or discomfort in one or both arms, back, neck, jaw or stomach. Shortness of breath: With or without discomfort. Other signs: Breaking out in a cold sweat, nausea, or lightheaded. Remember, MINUTES DO MATTER. If you experience any of these heart attack warning signs, call 07-15-1 to get immediate medical attention! Normal [facility] Comprehensive Intake - Texto n 01-02-2024 Comprehensive Intake - Text Comprehensive Intake Entered On: 01/02/2024 7:57 EST Performed On: 01/02/2024 7:56 EST by Silva Ko Menstrual Status : Prophylaxis Bladder Control Issues? : No Urine Leakage? : No Presence or absence of urinary incontinence assessed : Yes CPT-II Medication list doc'd in medical record : Yes Influenza immunization administered or previously received : No Pneumococcal vaccine administered or previously received : No Chief Complaint : Here for annual- No concerns. Mirena inserted 04/26/2023- NO periods, only spotting Silva Ko - 01/02/2024 7:58 EST Measurements Weight Measured : 66.7 kg(Converted to: 147 lb 1 oz, 147.048 lb) Body Mass Index Measured : 29.64 kg/m2 Body Mass Index documented : Yes Silva Ko - 01/02/2024 7:58 EST Ht/Wt Measurement Refused by Patient? : No Height/Length Measured : 150 cm(Converted to: 4 ft 11 in, 59.06 in) Silva Ko - 01/02/2024 7:56 EST Vitals Require BP : Yes Systolic Blood Pressure : 128 mmHg Diastolic Blood Pressure : 82 mmHg Mean Arterial Pressure : 97 mmHg Last Systolic BP : less than 130 mmHg Last Diastolic BP : 80-89 mmHg Pain Present : No actual or suspected pain Pain : 0 Pain severity quantified : No pain present Silva Ko - 01/02/2024 7:58 EST Infection Screening Travel outside [place] within past 30 days : No Positive COVID test in the last 10 days? : No Coronavirus Live/Work High Risk : No Exposure to and/or close contact with a person who has a laboratory-confirmed COVID test within the last 48 hours. : No Silva Ko 01/02/2024 7:56 EST Depression Screening Is patient currently : None of the Below Feeling Down, Depressed, Hopeless : Not at all Little Interest - Pleasure in Activities : Not at all Initial Depression Screen Score : 0 Depression Screening Score 0 : No Silva Ko 01/02/2024 7:58 EST Falls Risk Assessment Is the patient ambulatory (mobile) : Yes Have you had 2 or more falls in the past year : No Have you had a fall within the past year that has caused an injury : No Patient screen for fall risk : no falls in last year OR 1 fall with no injury in last year Silva Ko - 01/02/2024 7:56 EST Normal [facility] COPY EDITOR Visit - Texton 4 COPY EDITOR Visit - Text COPY EDITOR Visit Entered On : 01/02/2024 7:57 EST Performed On: 01/02/2024 7:57 EST by Silva Ko COPY EDITOR Menstrual History Menstrual Status : Prophylaxis Silva Ko - 01/02/2024 8:09 EST COPY EDITOR Screenings Date of Last Pap Smear : 12/02/2022 Last Pap Result : Negative Last Pap Result Comment : Neg HPV Date of Last Mammogram : 06/24/2023 Last Mammography Result : Benign Last Mammography Result Comment : Cat 2 Benign Date of colo/rectal cancer screen : Never Silva Ko - 01/02/2024 7:57 EST Contraception Contraception Method : IUD IUD Type : Mirena IUD Insertion Date : 04/26/2023 (LOT#: [id number]) IUD Expiration Date : 04/26/2031 Silva Ko - 01/02/2024 7:57 EST Normal [facility] SDOH Screening Assessment - Texton 01-02-2024 SDOH Screening Assessment - Text Social Determinants of Health Screening Assessment Entered On: 01/02/2024 8:09 EST Performed On: 01/02/2024 8:09 EST by Silva Ko Social Determinants of Health (SDOH) - screen 1. Is the patient agreeable to providing responses to the SDOH Screening Assessment? : No Silva Ko - 01/02/2024 8:09 EST Normal [facility] COPY EDITOR Visit - Texton 4 COPY EDITOR Visit - Text COPY EDITOR Visit Entered On : 12/29/2023 12:48 EST Performed On: 12/29/2023 12:47 EST by Silva Ko COPY EDITOR Menstrual History Menstrual Status : Menarcheal Silva Ko - 12/29/2023 12:47 EST COPY EDITOR Screenings Date of Last Pap Smear : 12/02/2022 Last Pap Result : Negative Last Pap Result Comment : Neg HPV Date of Last Mammogram : 06/24/2023 Last Mammography Result : Benign Last Mammography Result Comment : Cat 2 Benign Silva Ko - 12/29/2023 12:47 EST Contraception IUD Type : Mirena IUD Insertion Date : 04/26/2023 (LOT#: [id number]) IUD Expiration Date : 04/26/2031 Silva Ko - 12/29/2023 12:47 EST Normal [facility] Absolute lymphocyte countOrd ered By: Aditi Almaraz on 05-19-2023 Lymphocytes Auto (Unsp spec) [#/Vol] 1.61 10*3/uL 0.83-4.51 [facility] Basophil percentageOrdered B y: Aditi Celayanger on 05-19-2023 Basophils/100 WBC (Bld) 0.7 % 0-1 [facility] Bilirubin [Mass/Vol] 0.40 mg/dL 0.20-1.00 [facility] Comment on above: For patients on eltr ombopag therapy, use of Dimension Slovan TBIL is not recommended. Chloride [Moles/Vol] 105 mmol/L 98-107 [facility] Cholesterol [Mass/Vol] 166 mg/dL <200 [facility] Comment on above: <200 mg/dL Desirable 200-240 mg/dL Borderline >240 mg/dL High Risk Eosinophils/100 WBC (Bld) 4.5 % 0-5 [facility] Glucose [Mass/Vol] 101 mg/dL 74-106 [facility] Comment on above: Fasting Glucose resu lt from 100 to 125 mg/dL suggests IMPAIRED HOMEOSTASIS per A.D.A. criteria. Neutrophils (Bld) [#/Vol] 4.4 10*3/uL 2.0-7.7 [facility] Neutrophils/100 WBC (Bld) 63.6 % 47-70 [facility] Potassium [Moles/Vol] 3.9 mmol/L 3.5-5.1 [facility] Protein [Mass/Vol] 7.8 g/dL 6.4-8.2 [facility] Sodium [Moles/Vol] 138 mmol/L 136-145 [facility] Triglyceride [Mass/Vol] 123 mg/dL <199 [facility] Comment on above: The drugs N-Acetylcy steine and Metamizole may falsely depress this assay.Serum Triglycerides Reference Interval Normal <150 mg/dL Borderline high 150 - 199 mg/dL High 200 - 499 mg/dL Very High > or = 500 mg/dL WBC (Bld) [#/Vol] 6.9 10*3/uL 4.4-11.0 [facility] Blood erythrocytes count (nu mber/volume)Ordered By: Aditi Almaraz on 05-19-2023 RBC (Bld) [#/Vol] 4.59 10*6/uL 4.2-5.4 [facility] Blood hemoglobin measurement (mass/volume)Ordered By: Aditi Almaraz on 05-19-2023 Hemoglobin (Bld) [Mass/Vol] 13.9 g/dL 12.0-15.0 [facility] Blood lymphocytes/100 leukoc ytesOrdered By: Aditi Almaraz on 05-19-2023 Lymphocytes/100 WBC (Bld) 23.5 % 19-41 [facility] Blood monocytes/100 leukocyt esOrdered By: Aditi Almaraz on 05-19-2023 Monocytes/100 WBC (Bld) 7.6 % 0-10 [facility] Blood platelet mean volumeOr dered By: Aditi Almaraz on 05-19-2023 Platelet mean volume (Bld) [Entitic vol] 12.1 fL 6.2-12.0 [facility] Determination of erythrocyte mean corpuscular volume (MCV)Ordered By: Aditi Almaraz on 05-19-2023 MCV (RBC) [Entitic vol] 93.7 fL 81-99 [facility] Hematocrit Auto (Bld) [Volum e fraction]Ordered By: Aditi Almaraz on 05-19-2023 Hematocrit (Bld) [Volume fraction] 43.0 % 37-47 [facility] Laboratory - Chemistry and C hemistry - challengeOrdered By: Aditi Almaraz on 05-19-2023 ALP [Catalytic activity/Vol] 55 U/L 45-117 [facility] ALT [Catalytic activity/Vol] 20 U/L 13-56 [facility] CO2 [Moles/Vol] 28.0 mmol/L 21.0-32.0 [facility] Globulin (S) [Mass/Vol] 3.8 g/dL 2.2-4.2 [facility] Urea nitrogen/Creatinine [Mass ratio] 11.6 mg/mg 10-20 [facility] Laboratory - Hematology and Cell countsOrdered By: Aditi Almaraz on 05-19-2023 Erythrocyte distribution width (RBC) [Entitic vol] 41.7 fL 35.1-43.9 [facility] Erythrocyte distribution width (RBC) [Ratio] 12.1 % 11.6-14.6 [facility] Immature granulocytes/100 WBC (Bld) 0.100 % 0.0-0.9 [facility] Comment on above: IG% - Immature Granu locytes (promyelocytes, myelocytes and metamyelocytes) > 1% indicates that a LEFT SHIFT is Present. MCH (RBC) [Entitic mass] 30.3 pg 27.0-32.0 [facility] Nucleated RBC/100 WBC (Bld) [Ratio] 0 % 0-5 [facility] MCHC Auto (RBC) [Mass/Vol]Or dered By: Aditi Almaraz on 05-19-2023 MCHC (RBC) [Mass/Vol] 32.3 g/dL 32-36 [facility] No Panel InformationOrdered By: Aditi Almaraz on 05-19-2023 Estimated GFR (MDRD) Amer 93 mL/min >60 [facility] Comment on above: GFR Calc Estimated GFR (MDRD) Non-Af Amer 77 mL/min >60 [facility] Comment on above: Non- GFR Calc Thyroid Stimulating Hormone (TSH) 1.25 uIU/mL 0.358-3.74 [facility] Platelets bldOrdered By: Wendy Almaraz on 05-19-2023 Platelets (Bld) [#/Vol] 223 10*3/uL 150-450 [facility] Serum or plasma albumin danish urement (mass/volume)Ordered By: Aditi Almaraz on 05-19-2023 Albumin [Mass/Vol] 4.0 g/dL 3.2-5.0 [facility] Serum or plasma albumin/glob ulin mass ratioOrdered By: Aditi Almaraz on 05-19-2023 Albumin/Globulin [Mass ratio] 1.1 {ratio} 0.9-2.4 [facility] Serum or plasma calcium danish urement (mass/volume)Ordered By: Aditi Almaraz on 05-19-2023 Calcium [Mass/Vol] 9.3 mg/dL 8.5-10.1 [facility] Serum or plasma cholesterol in HDL measurement (mass/volume)Ordered By: Aditi Almaraz on 05-19-2023 Cholesterol in HDL [Mass/Vol] 43 mg/dL >40 [facility] Comment on above: The drugs N-Acetylcy steine and Metamizole may falsely depress this assay. Reference Range HDL <40 mg/dL Low HDL Cholesterol HDL >or= 60 mg/dL High HDL Cholesterol Serum or plasma cholesterol in VLDL measurement (mass/volume)Ordered By: Aditi Almaraz on 05-19-2023 Cholesterol in VLDL [Mass/Vol] 25 mg/dL 5-40 [facility] Serum or plasma creatinine m easurement (mass/volume)Ordered By: Aditi Almaraz on 05-19-2023 Creatinine [Mass/Vol] 0.86 mg/dL 0.55-1.02 [facility] Comment on above: The validity of the calculated GFR & GFRAA in patients over 70 years has not been determined. Clinical correlation is essential. Serum or plasma low density lipoprotein (LDL) cholesterol measurement (mass/volume)Ordered By: Aditi Almaraz on 05-19-2023 Cholesterol in LDL [Mass/Vol] 98 mg/dL 0-130 [facility] Serum or plasma urea nitroge n measurement (mass/volume)Ordered By: Aditi Almaraz on 05-19-2023 Urea nitrogen [Mass/Vol] 10 mg/dL 7-18 [facility] Thin prep Papanicolaou smear with manual screeningOrdered By: Aditi Almaraz on 05-19-2023 Thin prep Papanicolaou smear with manual screening 13 U/L 15-37 [facility] Thin prep Papanicolaou smear with manual screening 5 5-15 [facility] Whole blood hemoglobin A1c/t otal hemoglobin ratio (mass fraction)Ordered By: Aditi Almaraz on 05-19-2023 HbA1c (Bld) [Mass fraction] 5.4 % 3.8-5.6 [facility] Comment on above: Normal < 5.7 % Predi abetic 5.7 - 6.4 % Diabetic >or= 6.5 % Please note range changes. AMB Urine POC 8102 5on 04-26-2023 Beta HCG ( test) Ql (U) Urine Test Entered On: 04/26/2023 13:51 EDT Performed On: 04/26/2023 13:51 EDT by Silva Ko Urine HCG Urine Beta Human Chorionic Gonadotropin Qualitative : Negative Silva Ko - 04/26/2023 13:51 EDT Normal [facility] Amb Office-Progress Notes-Pr ovideron 04-26-2023 Amb Office-Progress Notes-Provider Assessment/Plan This Visit Diagnosis 1. Negative test Z32.02 Ordered: AMB Urine POC 45878, 04/26/2023 13:51:00 EDT, Negative test 2. Encounter for IUD removal and reinsertion Z30.433 Mirena removed without difficulty New Mirena placed easily discussed s/s to call for f/u prn and at annual in Nov Ordered: levonorgestrel(Mirena (levonorgestrel) 52 mg intrauteral device), 1 EA, Intrauteral, ONCE AMB Insert Intrauterine Device [id number], 04/26/2023 14:25:00 EDT, Encounter for IUD removal and reinsertion, 1 AMB Remove Intrauterine Device [id number], 04/26/2023 14:25:00 EDT, Encounter for IUD removal and reinsertion, 1 Orders: miSOPROStol(Cytotec 200 mcg oral tablet), See Instructions Chief Complaint Here for Mirena removal and reinsertion. Took both doses of cytotec. LMP: 04/23/23 uHCG: Negative History of Present Illness 43 year old here for Mirena removal and reinsertion. Reviewed r/b/se/a. Preg test negative see procedures Physical Exam Vitals & Measurements BP: 116/72 HT: 150 cm WT: 65.1 kg BMI: 28.93 LMP: 04/23/2023 00:00 EDT Depression Screening Scores Initial Depression Screen Score: 0 (04/26/23 13:29:00) Fall Risk Assessment Is the patient ambulatory (mobile): Yes (04/26/23 13:29:00) Have you had a fall within the past: No (04/26/23 13:29:00) Have you had 2 or more falls in the past: No (04/26/23 13:29:00) Reviewed VS and stable COPY EDITOR: External genitalia: normal, no lesions Urethra: normal meatus Vagina: normal no lesions, spotty discharge, vault normal Cervix: no lesions, no cervical motion tenderness, normal appearance Uterus: normal mobility, non-tender, normal size, shape and consistency Adnexa: normal, non-tender Perineum: no hemorrhoids, masses or warts noted COPY EDITOR Procedure Details Procedure: IUD Removal Confirmed consent for Removal of IUD Expectations of contraception/conceivi ng discussed Speculum placed IUD strings isolated inside os with Erlinda Erlinda uesd to gently grasp and remove IUD with limited resistance IUD removed intact Minimal bleeding and patient tolerated procedure well. Here for IUD Insertion. Took cytotec and ibuprofen as directed. Declines GC/CT- no new partners Consent: Risk/benefits/alternat sarath discussed with patient, Informed consent obtained for Mirena IUD. Procedure: The patient was placed in the lithotomy position, the cervix was prepped with betadine or it's alternative. The uterus was sounded and found to be 9 cm, the IUD was inserted without difficulty, the strings were cut to 3 cm, Ultrasound confirmed location and orientation. Post procedure: The Patient tolerated procedure well, Discussed checking strings,warning signs and symptoms reviewed,need for annual exam reviewed COPY EDITOR Additional Details-Patient Stated Menstrual History Menstrual StatusMenarcheal Last Menstrual [id number]/23/2023 COPY EDITOR Screening Date of Last Pap Smear 12/02/22 Last Pap Result, Pt StatedNegative Last Pap Result CommentNeg HPV Last Mammography Result, Pt StatedBenign Contraception Contraception MethodIUD IUD TypeMirena IUD Insertion Date04/26/2023 (LOT#: [id number]) IUD Expiration Date04/26/2031 OB History History (1,1,0,2) # 1 Baby 1 Outcome Date: 07/2014 Outcome or Result: Gest Age: 40 weeks Outcome: Live Sex: Male Wt: 3345 g Hospital: [facility] # 2 Baby 1 Outcome Date: 04/11/2016 Outcome or Result: Gest Age: 34 weeks 1 days Outcome: Live Sex: Male Wt: 2438 g Hospital: [place] Problem List/Past Medical History Ongoing Acne Anemia Anxiety PFD (pelvic floor dysfunction) Vulvar vestibulitis Historical Procedure/Surgical History No qualifying data available. Medications levonorgestrel(Mirena 52 mg intrauterine device), 52 mg= 1 EA, Intrauteral, ONCE levonorgestrel(Mirena (levonorgestrel) 52 mg intrauteral device), 1 EA, Intrauteral, ONCE miSOPROStol(Cytotec 200 mcg oral tablet), See Instructions sertraline(sertraline 100 mg oral tablet) Allergies Augmentin hives penicillin hives Social History Alcohol - Denies Alcohol Use Sexual Sexually active:Yes Other contraceptive use:Mirena inserted 04/26/23 (Vijay Soriano CNP) Substance Abuse - Denies Substance Abuse Tobacco Use:Never (less than 100 in lifetime) Family History Lung cancer..: Mother. Health Status Family Member(s) Family Member(s) Relationship: Mother, Age: Unknown Lab Results Test Name Test Result Date/Time U beta hCG Ql Negative 04/26/2023 13:51 EDT Normal [facility] Ambulatory Clinical Summaryo n 04-26-2023 Ambulatory Clinical Summary YUE HIGHTOWER :1980 Visit Date:04/26/2023 Ambulatory Visit Instructions Your Diagnosis Negative test Encounter for IUD removal and reinsertion Tests Performed AMB Urine POC 18901 Your Care Team Attending Physician - VIJAY SORIANO CNP Primary Care Physician - ALYX ASHLEY Procedures Performed Mirena insertion (LOT# [id number]) (04/26/2023) Pap: Neg w/Neg HPV (12/02/2022) (2013) carpal tunnel release (2012) wisdom teeth (2011) lipoma resection (1998) Discharge Vitals Blood Pressure 116/72 Height 59.06 in (150 cm) Weight 143.55 lb (65.1 kg) BMI 28.93 Systolic Blood Pressure: 116 mmHg (04/26/23 13:29:00) Diastolic Blood Pressure: 72 mmHg (04/26/23 13:29:00) Mean Arterial Pressure: 87 mmHg (04/26/23:29:00) Height/Length Measured: 150 cm (04/26/23 13:29:00) Weight Measured: 65.1 kg (04/26/23 13:29:00) Body Mass Index Measured: 28.93 kg/m2 (04/26/23 13:29:00) Ht/Wt Measurement Refused by Patient?2: No (04/26/23 13:29:00) Last Menstrual Period: 04/23/23 (04/26/23 13:30:00) Last Menstrual Period: 04/23/23 (04/26/23 13:29:00) What to do next Scheduled Follow-Up Appointments No results Medications What How Much When Instructions Unchanged levonorgestrel (Mirena 52 mg intrauterine device) 1 Each Intrauteral ONCE Duration: 1 Doses Unchanged miSOPROStol (Cytotec 200 mcg oral tablet) See instructions 1 tabs ORAL evening prior to procedure and in AM of procedure Unchanged sertraline (sertraline 100 mg oral tablet) Test Results AMB Urine POC 40652 (04/26/2023) U beta hCG Ql - Negative Allergies Augmentin hives penicillin hives Problems Ongoing - Any problem that you are currently receiving treatment for. Acne Anemia Anxiety PFD (pelvic floor dysfunction) Vulvar vestibulitis Common Emergency Awareness Tips IS IT A STROKE? Act FAST and Check for these signs: FACE Does the face look uneven? ARM Does one arm drift down? SPEECH Does their speech sound strange? TIME Call at any sign of stroke Heart Attack Signs Chest discomfort: Most heart attacks involve discomfort in the center of the chest and lasts more than a few minutes, or goes away and comes back. It can feel like uncomfortable pressure, squeezing, fullness or pain. Discomfort in upper body: Symptoms can include pain or discomfort in one or both arms, back, neck, jaw or stomach. Shortness of breath: With or without discomfort. Other signs: Breaking out in a cold sweat, nausea, or lightheaded. Remember, MINUTES DO MATTER. If you experience any of these heart attack warning signs, call to get immediate medical attention! Normal [facility] Comprehensive Intake - Texto n 04-26-2023 Comprehensive Intake - Text Comprehensive Intake Entered On: 04/26/2023 13:30 EDT Performed On: 04/26/2023 13:29 EDT by Silva Ko Summary Last Menstrual Period : 04/23/2023 EDT Menstrual Status : Menarcheal Silva Ko - 04/26/2023 13:34 EDT Chief Complaint : Here for Mirena removal and reinsertion. Took both doses of cytotec. LMP: 04/23/23 uHCG: Negative Silva Ko - 04/26/2023 13:43 EDT Bladder Control Issues? : No Urine Leakage? : No Presence or absence of urinary incontinence assessed : Yes CPT-II Medication list doc'd in medical record : Yes Influenza immunization administered or previously received : No Pneumococcal vaccine administered or previously received : No Silva Ko - 04/26/2023 13:29 EDT Measurements Weight Measured : 65.1 kg(Converted to: 143 lb 8 oz, 143.521 lb) Body Mass Index Measured : 28.93 kg/m2 Body Mass Index documented : Yes Silva Ko - 04/26/2023 13:34 EDT Ht/Wt Measurement Refused by Patient? : No Height/Length Measured : 150 cm(Converted to: 4 ft 11 in, 59.06 in) Silva Ko - 04/26/2023 13:29 EDT Vitals Require BP : Yes Systolic Blood Pressure : 116 mmHg Diastolic Blood Pressure : 72 mmHg Mean Arterial Pressure : 87 mmHg Last Systolic BP : less than 130 mmHg Last Diastolic BP : less than 80 mmHg Pain Present : No actual or suspected pain Pain : 0 Pain severity quantified : No pain present Silva Ko 04/26/2023 13:34 EDT Infection Screening - Ambulatory Exposure AND/OR close contact with a person under investigation or laboratory-confirmed COVID-19 individual within 14 days of symptom onset AND/OR any of the following: : No Do you live/work in a high risk situation (congregated living, hemodialysis, infusion clinic, residential, assisted living, custodial, homeless correction, etc.)? : No Silva Ko - 04/26/2023 13:29 EDT Depression Screening Is patient currently : None of the Below Feeling Down, Depressed, Hopeless : Not at all Little Interest - Pleasure in Activities : Not at all Initial Depression Screen Score : 0 Depression Screening Score 0 : No Silva Ko - 04/26/2023 13:34 EDT Falls Risk Assessment Is the patient ambulatory (mobile) : Yes Have you had 2 or more falls in the past year : No Have you had a fall within the past year that has caused an injury : No Patient screen for fall risk : no falls in last year OR 1 fall with no injury in last year Silva Ko - 04/26/2023 13:29 EDT Normal [facility] COPY EDITOR Visit - Texton COPY EDITOR Visit - Text COPY EDITOR Visit Entered On : 04/26/2023 13:31 EDT Performed On: 04/26/2023 13:30 EDT by Silva Ko COPY EDITOR Menstrual History Last Menstrual Period : 04/23/2023 EDT Silva Ko - 04/26/2023 13:41 EDT Menstrual Status : Menarcheal Silva Ko - 04/26/2023 13:30 EDT COPY EDITOR Screenings Date of colo/rectal cancer screen : Never Silva Ko - 04/26/2023 13:41 EDT Date of Last Pap Smear : 12/02/22 Last Pap Result : Negative Last Pap Result Comment : Neg HPV Date of Last Mammogram : 05/2022- per patient Last Mammography Result : Benign Silva Ko - 04/26/2023 13:30 EDT Contraception Contraception Method : IUD IUD Expiration Date : 04/26/2031 Silva Ko - 04/26/2023 13:46 EDT IUD Type : Lorena Silva Ko - 04/26/2023 13:30 EDT IUD Insertion Date : 04/26/2023 (LOT#: [id number]) Silva Ko - 04/26/2023 13:47 EDT Normal [facility] Phone Msgon 06-12-2023 Phone Msg - From: Claudette Prieto To: VIJAY SORIANO CNP; Sent: 04/25/2023 14:03:45 EDT Subject: Cytotec Caller Name: YUE HIGHTOWER; Caller Number: H Patient scheduled for IUD removal & reinsertion for tomorrow (04/26/23). Please send script for Cytotec to pharmacy on file. If you have any questions, patient can be reached at [phone]. Thank you. From: VIJAY SORIANO CNP To: Silva Ko; Sent: 04/25/2023 15:31:28 EDT Subject: FW: Cytotec Caller Name: YUE HIGHTOWER; Caller Number: H rx sent for cytotec-please let her know Patient made aware that cytotec sent to pharmacy. Suggested taking 600mg of ibuprofen prior to the procedure, and informed we will need her to be able to give us a urine sample prior to insertion. Patient has no further questions at this time. Normal [facility] Basophil percentageon 2021 Basophil percentage 5-10 SEEN /hpf 0-5 [facility] Work Phone: Bilirubin Test strip Ql (U)o n 09-08-2022 Bilirubin Ql (U) Negative Negative [facility] Work Phone: Ketones Test strip Ql (U)on 09-08-2022 Ketones Ql (U) Negative Negative [facility] Work Phone: Mucus LM Ql (Urine sed)on Mucus Ql (Urine sed) 0 [facility]: Nitrite Test strip Ql (U)on 09-08-2022 Nitrite Ql (U) Positive Negative [facility] Work Phone: Protein Test strip Ql (U)on 09-08-2022 Protein Ql (U) 15 mg/dl Negative [facility] Work Phone: Squamous epithelial cells de tection in urine sediment by light microscopyon 09-08-2022 Epithelial cells.squamous LM Ql (Urine sed) 0 SEEN /hpf 5-10 [facility] Work Phone: Urine blood detectionon - RBC Ql (U) 50 /ul Negative [facility] Work Phone: RBC Ql (U) 0-5 SEEN /hpf 0-5 [facility] Work Phone: Urine clarityon 09-08-2022 Clarity (U) Sl. Cloudy Clear [facility] Work Phone: Urine color determinationon 09-08-2022 Color (U) Yellow Yellow [facility] Work Phone: Urine glucose detectionon Glucose Ql (U) Normal mg/dl Normal [facility] Work Phone: Urine leukocyte esterase det ection by dipstickon 09-08-2022 Leukocyte esterase Test strip Ql (U) 500 /ul Negative [facility] Work Phone: Urine pHon 09-08-2022 pH (U) 7.0 [pH] 5.0 - 8.0 [facility] Work Phone: Urine sediment bacteria coun t by microscopy (number/high power field)on 09-08-2022 Bacteria LM.HPF (Urine sed) [#/Area] 2 /[HPF] None Seen [facility] Work Phone: Urine specific gravity measu rementon 09-08-2022 Specific gravity (U) [Rel density] 1.010 1.002-1.030 [facility] Work Phone: Urobilinogen Auto test strip Ql (U)on 09-08-2022 Urobilinogen Ql (U) Normal mg/dl Normal [facility] Work Phone: CNOVon 06-18-2020 CNOV Office Visit (OBGWMA ) YUE HGIHTOWER ([id number]) 1980 F Date Time Provider Department 06/18/20 11:15 AM SARAH AHMADI During your visit today, we recorded the following information about you: Blood pressure Weight Height Last Period 118/72 63 kg 1.499 m 05/25/20 Sarah Ahmadi MD 06/18/2020 11:27 AM Signed Yue Hightower is an 40 year old woman who presents for annual exam. LMP: Patient's last menstrual period was 05/25/2020. Periods are regular q 28-30 days, lasting 2 days. Dysmenorrhea:none. Cyclic symptoms include none. Sexually active? Yes Contraception: IUD - Mirena, inserted 06/2017 Sexual dysfunction: none Vaginitis symptoms: none PAST MEDICAL HISTORY Diagnosis Date - NEGATIVE MEDICAL HISTORY - 03/06/2014 19 weeks on 03/05/14 PAST SURGICAL HISTORY Procedure Laterality Date - ANESTH, SECTION 07/2014 - CARPAL TUNNEL left - SECTION HX 07/2014 - PAST SURGICAL HISTORY OF Lipoma removed from back FAMILY HISTORY Problem Relation Age of Onset - Cancer Mother Lung - Alcohol/Drug Mother - Hypertension Father - Eczema Son - Eczema Son Social History Tobacco Use - Smoking status: Never Smoker - Smokeless tobacco: Never Used Substance Use Topics - Alcohol use: No - Drug use: No MEDICATIONS: copper (PARAGARD T 380A) 380 square mm IUD by INTRAUTERINE route. multivitamin tablet Take 1 tablet by mouth once daily. ibuprofen (MOTRIN) 600 mg tablet Take 1 tablet by mouth every 6 hours as needed. ALLERGIES:Penicillins Hx of abnormal pap? No Regular self-breast exam? Yes History of abnormal mammogram? No REVIEW OF SYSTEMS: GENERAL:Denies fever, chills, night sweats, or changes in weight. DERMATOLOGIC: Denies any new skin conditions, rashes or changing moles. EYES: Denies recent visual changes. ENT: Denies hearing loss or tinnitus. RESPIRATORY: Denies any cough, dyspnea, or wheezing. CARDIOVASCULAR:Denies any chest pain with exertion or at rest, palpitations, syncope, shortness of breath or edema. BREASTS: Denies any breast lumps, tenderness, dimpling, skin changes, or nipple discharge. GASTROINTESTINAL: Denies any nausea, vomiting, or abdominal pain. , Denies heartburn., Denies any change in bowel habits. GENITOURINARY:Denies urinary frequency, dysuria, hematuria, nocturia, incontinence. and Denies abnormal vaginal discharge or bleeding, pelvic pain, menstrual or menopausal problems COPY EDITOR: Denies any abnormal vaginal discharge, irregular bleeding, vaginal dryness, dypareunia, or change in libido MUSCULOSKELETAL: Denies any joint swelling, crepitus, or loss of range of motion., Denies back pain., Denies joint pain. NEURO:Denies any headaches, tremors, dizziness, vertigo, memory loss, confusion., Denies weakness, numbness or tingling. PSYCHIATRIC: Denies any anxiety or depression. HEMATOLOGIC/LYMPHATIC/ IMMUNOLOGIC: Denies anemia, bruising, bleeding abnormalities. ENDOCRINE: Denies any heat or cold intolerance, polyuria, polyphasia or polydipsia. OBJECTIVE: GENERAL APPEARANCE: cooperative, in no acute distress, alert. SKIN:Color normal, Vascularity normal, No evidence of bleeding or bruising, No lesions noted, No edema, Temperature normal, Texture normal, Mobility and turgor normal, Nails normal without clubbing NECK: Supple, no adenopathy; thyroid symmetric, normal size, no bruits BREASTS: breasts symmetric, no dominant or suspicious mass, no skin or nipple changes, no axillary adenopathy HEART:Normal PMI, Regular rate and rhythm, Normal heart sounds, S1 and S2 and No murmurs. ABDOMEN: soft, non-tender, no masses, no hepatosplenomegaly and no lymphadenopathy EXTREMITIES: No skin discoloration, No edema and Normal pulses bilaterally. PELVIC EXAM : External genitalia, cervix, and vagina normal., Bimanual exam normal. IUD not seen RECTAL EXAM: deferred PATIENT EDUCATION:Women's Health counselling done. ASSESSMENT/PLAN: 1. Routine cervical smear - ICD9: V76.2, ICD10: Z12.4 (primary diagnosis) - Completed pelvic and breast exam - Encouraged monthly BSE - Follow up for annual exam in one year. - PAP, CYTO COPY EDITOR 2. Encounter for gynecological examination (general) (routine) without abnormal findings - ICD9: V72.31, ICD10: Z01.419 - Completed pelvic and breast exam - Encouraged monthly BSE - Follow up for annual exam in one year. 3. Encounter for routine checking of intrauterine contraceptive device (IUD) - ICD9: V25.42, ICD10: Z30.431 4. Intrauterine contraceptive device threads lost, initial encounter - ICD9: 996.32, ICD10: T83.32XA Sarah Ahmadi MD Referring Provider: SELF [200] Allergies As of Date: 06/18/2020 Noted Allergy Reaction PENICILLINS 04/10/2016 4 - Hives Date Reviewed: 06/18/2020 Reviewed by: Sarah Ahmadi - Fully Assessed Reason for Visit: Yearly Exam [187] Cmt: last PAP 02/28/19 Primary Visit Diagnosis:Screening for malignant neoplasm of cervix [Z12.4] Other Visit Diagnosis:Encounter for gynecological examination (general) (routine) without abnormal findings [Z01.419] Order(s):PAP, CYTO COPY EDITOR [[id number]] Order #: [id number] Prescriptions as of 06/18/2020 Sig: COPPER 380 SQUARE MM INTRAUTE* by INTRAUTERINE route. MULTIVITAMIN TABLET Take 1 tablet by mouth once d* IBUPROFEN 600 MG TABLET Take 1 tablet by mouth every * Patient not taking: Reported on 02/28/2019 Problem List As Of Date 06/18/2020 Noted Resolved Rectal bleeding [K62.5] 03/06/2014 [Z34.90] 03/06/2014 More... [Z34.90] 04/11/2016 uterine contractions in third trimester*04/10/2016 Previous section complicating pregnanc*04/10/2016 Routine cervical smear [Z12.4] 11/30/2016 IUD strings lost [T83.32XA] 11/30/2016 Acute vaginitis [N76.0] 11/30/2016 Sebaceous cyst [L72.3] 05/03/2017 Inclusion cyst of vulva [N90.7] 05/03/2017 Encounter for routine checking of intrauterine *02/28/2019 Disposition: Return in about 1 year (around 06/18/2021). Follow-up and Disposition History Recorded Encounter Status:Closed by SARAH AHMADI MD on 06/18/[address] [facility] PROGRESSon 06-18-2020 PROGRESS HNO ID: [id number] Author: Sarah Ahmadi Service: ? Author Type: Physician Type: Progress Notes Filed: 06/18/2020 11:27 AM Note Text: Yue Hightower is an 40 year old woman who presents for annual exam. LMP: Patient's last menstrual period was 05/25/2020. Periods are regular q 28-30 days, lasting 2 days. Dysmenorrhea:none. Cyclic symptoms include none. Sexually active? Yes Contraception: IUD - Mirena, inserted 06/2017 Sexual dysfunction: none Vaginitis symptoms: none PAST MEDICAL HISTORY Diagnosis Date - NEGATIVE MEDICAL HISTORY - 03/06/2014 19 weeks on 03/05/14 PAST SURGICAL HISTORY Procedure Laterality Date - ANESTH, SECTION 07/2014 - CARPAL TUNNEL left - SECTION HX 07/2014 - PAST SURGICAL HISTORY OF Lipoma removed from back FAMILY HISTORY Problem Relation Age of Onset - Cancer Mother Lung - Alcohol/Drug Mother - Hypertension Father - Eczema Son - Eczema Son Social History Tobacco Use - Smoking status: Never Smoker - Smokeless tobacco: Never Used Substance Use Topics - Alcohol use: No - Drug use: No MEDICATIONS: copper (PARAGARD T 380A) 380 square mm IUD by INTRAUTERINE route. multivitamin tablet Take 1 tablet by mouth once daily. ibuprofen (MOTRIN) 600 mg tablet Take 1 tablet by mouth every 6 hours as needed. ALLERGIES:Penicillins Hx of abnormal pap? No Regular self-breast exam? Yes History of abnormal mammogram? No REVIEW OF SYSTEMS: GENERAL:Denies fever, chills, night sweats, or changes in weight. DERMATOLOGIC: Denies any new skin conditions, rashes or changing moles. EYES: Denies recent visual changes. ENT: Denies hearing loss or tinnitus. RESPIRATORY: Denies any cough, dyspnea, or wheezing. CARDIOVASCULAR:Denies any chest pain with exertion or at rest, palpitations, syncope, shortness of breath or edema. BREASTS: Denies any breast lumps, tenderness, dimpling, skin changes, or nipple discharge. GASTROINTESTINAL: Denies any nausea, vomiting, or abdominal pain. , Denies heartburn., Denies any change in bowel habits. GENITOURINARY:Denies urinary frequency, dysuria, hematuria, nocturia, incontinence. and Denies abnormal vaginal discharge or bleeding, pelvic pain, menstrual or menopausal problems COPY EDITOR: Denies any abnormal vaginal discharge, irregular bleeding, vaginal dryness, dypareunia, or change in libido MUSCULOSKELETAL: Denies any joint swelling, crepitus, or loss of range of motion., Denies back pain., Denies joint pain. NEURO:Denies any headaches, tremors, dizziness, vertigo, memory loss, confusion., Denies weakness, numbness or tingling. PSYCHIATRIC: Denies any anxiety or depression. HEMATOLOGIC/LYMPHATIC/ IMMUNOLOGIC: Denies anemia, bruising, bleeding abnormalities. ENDOCRINE: Denies any heat or cold intolerance, polyuria, polyphasia or polydipsia. OBJECTIVE: GENERAL APPEARANCE: cooperative, in no acute distress, alert. SKIN:Color normal, Vascularity normal, No evidence of bleeding or bruising, No lesions noted, No edema, Temperature normal, Texture normal, Mobility and turgor normal, Nails normal without clubbing NECK: Supple, no adenopathy; thyroid symmetric, normal size, no bruits BREASTS: breasts symmetric, no dominant or suspicious mass, no skin or nipple changes, no axillary adenopathy HEART:Normal PMI, Regular rate and rhythm, Normal heart sounds, S1 and S2 and No murmurs. ABDOMEN: soft, non-tender, no masses, no hepatosplenomegaly and no lymphadenopathy EXTREMITIES: No skin discoloration, No edema and Normal pulses bilaterally. PELVIC EXAM : External genitalia, cervix, and vagina normal., Bimanual exam normal. IUD not seen RECTAL EXAM: deferred PATIENT EDUCATION:Women's Health counselling done. ASSESSMENT/PLAN: 1. Routine cervical smear - ICD9: V76.2, ICD10: Z12.4 (primary diagnosis) - Completed pelvic and breast exam - Encouraged monthly BSE - Follow up for annual exam in one year. - PAP, CYTO COPY EDITOR 2. Encounter for gynecological examination (general) (routine) without abnormal findings - ICD9: V72.31, ICD10: Z01.419 - Completed pelvic and breast exam - Encouraged monthly BSE - Follow up for annual exam in one year. 3. Encounter for routine checking of intrauterine contraceptive device (IUD) - ICD9: V25.42, ICD10: Z30.431 4. Intrauterine contraceptive device threads lost, initial encounter - ICD9: 996.32, ICD10: T83.32XA Sarah Ahmadi MD Normal [facility] Pap,Cyto Gynon 06-18-2020 Pap,Cyto [facility] Test performed at [place] [address] NAME: STEVANYUE BERRIOS REQUESTING: SARAH AHMADI M.D. SPECIMEN: TP CX REFLEX TO HPV ASCUS Relevant History: LMP: 05/25/2020 SPECIMEN ADEQUACY SATISFACTORY FOR EVALUATION. ENDOCERVICAL/TRANSFORM ATION ZONE COMPONENTS PRESENT. INTERPRETATION/RESULT NEGATIVE FOR INTRAEPITHELIAL LESION OR MALIGNANCY. Electronically signed: 06/30/2020 Screened by: RUTHY TYLER (ASCP) Signed Out by: RUTHY BOGGS(ASCP) The Pap test serves as a screening tool for early detection of cervical cancer. The Pap test does not represent a final diagnostic test for cervical cancer. Furthermore, the Pap test was not designed to screen for other malignancies (endometrial, ovarian cancer, etc....). False negatives and false positives have occurred. If clinically indicated, further patient evaluation is recommended. Printed on: June 30, 2020 Page 1 of 1 Normal [facility] Comment on above: Performed By: #### C YTOP #### [place] [address] OBSOLETEon 06-12-2020 OBSOLETE Refill (EVE) YUE HIGHTOWER ([id number]) 1980 F Date Time Provider Department 06/12/20 SARAH AHMADI During your visit today, we recorded the following information about you: Charlotte May, RN, RN 06/12/2020 9:40 AM Signed Pt calling-scheduled for OV 06/18/2020-c/o vag yeast infection s/s (thick white d/c/itch). Requesting Rx for Diflucan. Order pended for review. Patient phones requesting refills as follows: Pending Prescriptions Disp Refills FLUCONAZOLE 150 MG TABLET 2 tablet 0 Sig: Take 1 tablet by mouth one time only for 1 dose. May repeat dose in 72 hrs PRN Please review and advise. Charlotte May RN Allergies As of Date: 06/12/2020 Noted Allergy Reaction PENICILLINS 04/10/2016 4 - Hives Date Reviewed: 02/28/2019 Reviewed by: Sarah Ahmadi - Fully Assessed Reason for Visit: Vaginal Problem [117] Reason For Visit History Recorded Order(s):fluconazole (DIFLUCAN) 150 mg tabletTake 1 tablet by mouth one time only for 1 dose. May repeat dose in 72 hrs PRNDisp: 2 tabletRfl: 0 Prescriptions as of 06/12/2020 Sig: FLUCONAZOLE 150 MG TABLET Take 1 tablet by mouth one ti* COPPER 380 SQUARE MM INTRAUTE* by INTRAUTERINE route. MULTIVITAMIN TABLET Take 1 tablet by mouth once d* IBUPROFEN 600 MG TABLET Take 1 tablet by mouth every * Patient not taking: Reported on 02/28/2019 Problem List As Of Date 06/12/2020 Noted Resolved Rectal bleeding [K62.5] 03/06/2014 [Z34.90] 03/06/2014 More... [Z34.90] 04/11/2016 uterine contractions in third trimester*04/10/2016 Previous section complicating pregnanc*04/10/2016 Routine cervical smear [Z12.4] 11/30/2016 IUD strings lost [T83.32XA] 11/30/2016 Acute vaginitis [N76.0] 11/30/2016 Sebaceous cyst [L72.3] 05/03/2017 Inclusion cyst of vulva [N90.7] 05/03/2017 Encounter for routine checking of intrauterine *02/28/2019 Prescriptions ordered this encounter Disp Refills Start End FLUCONAZOLE 150 MG TABLET 2 ta* 0 06/12/2020 06/12/2020 Route: ORAL Sig: Take 1 tablet by mouth one time only for 1 dose. May repeat dose in 72 hrs PRN Encounter Status:Closed by SARAH AHMADI MD on 06/12/[address] [facility] Culture, urine Bacteria identified Cx Nom (U) Presumptive E. coli [facility] Work Phone: Vital Signs Date Time Vital Sign Value Performing Clinician Ramon middleton 11-10-2023 14:57-0500 Body height 149.86 cm DO Aditi Almaraz Work Phone: [facility] 11-10-2023 14:57-0500 Body mass index (BMI) [Ratio] 29.2 kg/m2 DO Aditi Almaraz Work Phone: [facility] 11-10-2023 14:57-0500 Body weight 65.77 kg DO Aditi Almaraz Work Phone: [facility] Encounters Encounter Date Encounter Type Care Provider Facility Start: 11-27-2024 End: 11-27-2024 ambulatory Ilana Gonsalez SMALL APPLIANCE ASSEMBLY SUPERVISOR-C Work Phone: [facility] Work Phone: Start: 11-27-2024 End: 11-27-2024 Patient encounter procedure Ilana Gonsalez SMALL APPLIANCE ASSEMBLY SUPERVISOR-C Work Phone: -Laboratory Work Phone: Start: 11-27-2024 End: 11-27-2024 ambulatory CELSO HOFFMAN Facility:[facility] Start: 06-26-2024 End: 06-26-2024 ambulatory Ilana Gonsalez Facility:[facility] Start: 01-02-2024 End: 01-03-2024 ambulatory VIJAY SORIANO PROMOTIONS ASSISTANT Facility:[facility] Start: 12-22-2023 End: 12-22-2023 ambulatory DO Aditi Almaraz Work Phone: [facility] Work Phone: Start: 12-22-2023 End: 12-22-2023 Discharged Recurring DO Aditi Almaraz Work Phone: [facility]-Physical Therapy Work Phone: Start: 11-10-2023 End: 11-10-2023 Patient encounter procedure DO Aditi Diorer Work Phone: [facility] Start: 06-24-2023 End: 06-24-2023 ambulatory [facility] Work Phone: Start: 06-24-2023 End: 06-24-2023 Patient encounter procedure [facility]-Outpatient Breast Imaging Work Phone: Start: 05-19-2023 End: 05-19-2023 ambulatory [facility] Work Phone: Start: 05-19-2023 End: 05-19-2023 Patient encounter procedure [facility]-Laboratory, [facility] Start: 04-26-2023 End: 04-27-2023 ambulatory VIJAY SORIANO CNP Facility:[facility] Start: 04-25-2023 ambulatory ALYX ASHLEY [facility] Start: 09-08-2022 End: 09-08-2022 ambulatory [facility] Work Phone: Start: 09-08-2022 End: 09-08-2022 Patient encounter procedure [facility]-Laboratory, Specimen Start: 06-22-2022 End: 06-22-2022 Patient encounter procedure [facility]-Outpatient Breast Imaging Start: 06-18-2020 End: 06-18-2020 Subsequent hospital visit by physician Alyx Ashley [facility] Comment on above: Encounter for screen ing for malignant neoplasm of cervix [Z12.4] Procedures Date Procedure Procedure Detail Performing Clinician Start: 11-10-2023 Radiologic examinati on of knee DO Aditi Celayanger Work Phone: Start: 06-24-2023 Screening mammography Start: 06-22-2022 Screening mammography Bacteria identified in Urine by Culture Urine culture Plan of Treatment Date Care Activity Detail Author Start: 02-29-2024 HPV TESTING HPV TESTING [facility] Start: 02-29-2024 PAP TESTING PAP TESTING [facility] Start: 11-10-2023 Patient referral [facility] Work Phone: Start: 07-15-2020 Influenza vaccination INFLUENZA (#1) [facility] Start: 2001 Urine microalbumin profile DTAP,TDAP,TD (1 - Tdap) [facility] Start: 01-27-2000 HEPATITIS C SCREENING HEPATITIS C SC TAMMIEWILFRID [facility] Start: 01-27-2000 HIV SCREENING HIV SCREENING [facility] Patient referral [facility] Work Phone: Immunizations Immunization Date Immunization Notes Care Provider Alicia alessandrojozef 09-03-2018 Influenza, injectabl e, Madin [place] Canine Kidney, preservative free, quadrivalent [facility] 07-07-2016 influenza, injectabl e, quadrivalent, contains preservative [facility] 04-12-2016 RHO(D) immune globul in- IV or IM [facility] 08-09-2014 influenza, injectabl e, quadrivalent, preservative free [facility] 08-08-2014 RHO(D) immune globul in- IV or IM [facility] Payers Date Payer Category Payer Self-pay [id number] 2024 Unknown [id number] 2019 Unknown MMO MMO [employer] [id number] 2019-Present PPO [id number] 2008 Unknown 1980 Unknown [id number] 1980 Unknown [id number] 1980 Unknown [id number] Unknown [id number] Unknown [id number] Unknown [id number] Social History Date Type Detail Facility Start: 06-18-2020 End: 11-10-2023 Tobacco smoking status NHIS Never smoker [facility] Start: 06-18-2020 Tobacco use and exposure Never used [facility] Start: 06-18-2020 Alcohol intake Current non-dr convict guard of alcohol (finding) [facility] Sex Assigned At Not on file [facility] Exposure to SARS-CoV -2 (event) Not sure [facility] Start: 1980 Sex Assigned At Female [facility] Start: 11-10-2023 Tobacco smoking stat us NVIS Unknown if ever smoked [facility] Start: 02-15-2025 Sex Female (finding) [facility] Discharge summary 12-22-2023 Note Date & Type Note Facility 12-22-2023 Discharge summary Note Date/Time December 22, 2023 5:09pm [facility] Physical Therapy [facility] [address] [place] [address]. [address] [place] [address] / REHABILITATION SERVICES DISCHARGE SUMMARY MR#: [id number] Acct: [id number] Name: YUE HIGHTOWER Rep #: [id number] : 1980 43 From: Edd Wilder DPT, OCS, CSCS Referring Dr.: Dr. Wes Rowell MD Status: REG RCR Insurance: [facility] SELF PAY INSURANCE Discharge Summary D/C summary: It has been my pleasure to treat YUE HIGHTOWER referred by Dr. Wes Rowell MD, with the diagnosis of B knee pain.R>L for a total of 13 visit(s). Discharge Date: 12/22/23 Please see the following information for a summary of their discharge status. Subjective Subjective: Has been skiing and it was fine on the knee. Skiied for 3 hours and was fine. Will continue workout 2x/week. Pain R knee: Pain Intensity (Out of 10): 0 Overall Improvement % Improvement: 100 Objective Objective/Function: Doing great 100% better, full ROM, skiiing without difficulty and will continue workout in gym 2x/week. Goals Goal 1:: Full aROM R knee without pain or protectiveness. Goal Progress: Goal Met Goal 2:: patient descend steps without hesitation or weakness. Goal Progress: Goal Met Goal 3:: I approp HEP to limit future problems Goal Progress: Goal Met Goal 4:: pt feel 99% better and activities, 78 LEFFS Goal Progress: 100 Goal 5:: Plan to return to skiing Goal Progress: Goal Met Plan Plan: d/c D/C Information Discharge Comments: Doing well and will continue gym exercises. Will contact doctor if pain returns. d/c sentence: If there are questions or concerns regarding this patient's physical therapy, please feel free to call me at [phone]. Thank you for the referral of thispatient. Sincerely, Edd Wilder, DPT, OCS, CSCS Balance/Gait/Functional tests Balance/Special Test Scores Lower Extremity Functional Score: 80 Improvement % Improvement: 100 <Electronically signed by Edd Wilder DPT, OCS, CSCS> 12/22/23 [id number] CC: Dr. Wes Rowell MD; Aditi Almaraz, DO ~ EBG Signed [facility] Work Phone: Evaluation note Note Date & Type Note Facility Evaluation note No assessment information availa ble [facility] Work Phone: Evaluation note Note Date & Type Note Facility Evaluation note Diagnosis Onset Date Left knee pain acute Right knee pain acute [facility] Work Phone: Reason for referral (narrative) Note Date & Type Note Facility Reason for referral (narrative) No reason for referral information available [facility] Work Phone: Summary Purpose Family History No Family History Records FoundNo Family History Records FoundNo Family History Records FoundNo Family History Records Found Advance Directives No Advanced Directives Records FoundNo Advanced Directives Records FoundNo Advanced Directives Records FoundNo Advanced Directives Records Found Chief Complaint and Reason for Visit Chief Complaint SCREENING Chief Complaint SCREENING Chief Complaint bl knees room 3 R KNEE PAIN RX HERE Reason for Visit Left knee pain Right knee pain Additional Source Comments INFORMATION SOURCE (unrecogn ized section and content) DATE CREATED AUTHOR 06/18/2020 Duran Carrasquillo [facility] DATE CREATED AUTHOR 'S ORGANIZ ATION 06/30/2020 [facility] DATE CREATED AUTHOR AUTHOR'S ORGANIZ ATION 01/04/2024 [facility] DATE CREATED AUTHOR AUTHOR'S ORGANIZ ATION 02/17/2025 [facility] Source Comments (unrecognize d section and content) In the event this informatio n is protected by the Federal Confidentiality of Alcohol and Drug Abuse Patient Records regulations: The Federal rules restrict any use of the information to criminally investigate or prosecute any alcohol or drug abuse patient.[facility] Goals (unrecognized section and content) Goals may be documented in a n alternate sectionGoals may be documented in an alternate sectionGoals may be documented in an alternate sectionGoals may be documented in an alternate sectionGoals may be documented in an alternate sectionGoals may be documented in an alternate section Care Teams (unrecognized sec tion and content) Team Status: Active Member Role Status Dates Dr. Alyx Ashley MD Family Provider Active Aditi Almaraz DO Primary Care Provider Active Team Status: Inactive Member Role Status Dates Aditi Almaraz , DO Primary Care Provider, Attending Provider Active Team Status: Inactive Member Role Status Dates Aditi Almaraz DO Primary Care Provi trang, Attending Provider, Referring Provider Active Team Status: Inactive Member Role Status Dates Aditi Almaraz DO Primary Care Provider, Referring Provider Active Wes Rowell MD Attending Provider Active Team Status: Inactive Member Role Status Dates Aditi Almaraz DO Primary Care Provider Active Dr. Eduardo Li MD Attending Provider Active Team Status: Inactive Member Role Status Dates Aditi Almaraz DO Primary Care Provider Active Wes Rowell MD Attending Provider, Referring Prov ider Active Team Status: Active Member Role Status Dates Dr. Alyx Ashley MD Family Provider Active LYUDMILA Gleason Primary Care Provider Active Team Status: Inactive Member Role Status Dates LYUDMILA Gleason Primary Care Provider Active Start: November 27, 2024 End: November 27, 2024 PRAVEEN BUNN Attending Provider Active Start: November 27, 2024 End: November 27, 2024 FOR RECORDS PERTAINING TO PATIENTS WHO ARE OR HAVE BEEN ENROLLED IN A CHEMICAL DEPENDENCY/SUBSTANCEABUSE PROGRAM, SOME INFORMATION MAY BE OMITTED. This clinical summary was aggregated from multiple sources. Caution should be exercised in using it in the provision of clinical care. This summary normalizes information from multiple sources, and as a consequence, information in this document may materially change the coding, format and clinical context of patient data. In addition, data may be omitted in some cases. CLINICAL DECISIONS SHOULD BE BASED ON THE PRIMARY CLINICAL RECORDS. [facility] [employer] [facility]. provides no warranty or guarantee of the accuracy or completeness of information in this document.
== END 2025-07-02 23:59 | disposition home or self-care (01) ==
LOC: LABSPEC 09:06
PROVIDERS: PCP Nurse Practitioner Family; Referring Provider Nurse Practitioner Family; Visit Provider Nurse Practitioner Family
DX: R19.7 Diarrhea, unspecified (principal)
CPT/HCPCS: 83630; 87177; 87209; 87493; 87506

== ENCOUNTER → 2025-08-02 | Outpatient (CLI) | payer OTHER, SELFPAY ==
--- NOTE | 2025-08-02 07:11 | BI_ITS ---
EXAM: SCRN MAMM (CAD)W/DESTINEE BILAT DATE: 08/02/2025 CLINICAL HISTORY: F, Age 45 y/o , SCREENING TECHNIQUE: Procedure Code: [id number] Modality: MG Procedure: SCRN MAMM (CAD)W/DESTINEE BILAT COMPARISON: Prior exam(s) dated 06/26/2024, 06/24/2023, 06/22/2022. FINDINGS: TISSUE DENSITY: There are scattered areas of fibroglandular density. Bilateral Breast Mammographic Findings: No significant masses, calcifications or other abnormalities are identified. BI/SCRN MAMM (CAD)W/DESTINEE BILAT IMPRESSION: There is no mammographic evidence of malignancy. OVERALL FINAL ASSESSMENT BI-RADS 1: NEGATIVE. RECOMMENDATION: Routine annual follow-up in 1 Year A letter with findings and recommendations will be mailed to the patient. Reading Location: [id number]
--- OUTSIDE RECORDS SUMMARY | 2025-08-02 07:23 | XMS RPT_ITS | CCD ---
Author Organization [facility] Care Team Providers Care Office Service Coordinator Name Role Phone Alyx Ashley Primary Care Provider [phone] DO Aditi Almaraz Primary Care Provider DO Aditi Almaraz Referring Provider MD Wes Rowell Attending Provider [phone] Dr. Eduardo Li Attending Provider ALYX ASHLEY Primary Care Unavailable VIJAY SORIANO CNP Attending Unavailable NO FAMILY PHYSICIAN, 837 Primary Care Unavail able VIJAY SORIANO CNP Attending Unavailable ALYX ASHLEY Primary Care Unavailable Wallace LARD TUB WASHER-C, Ilana Primary Care Provider SEPIDEH MORTON Attending Provider Wallace LARD TUB WASHER-C, Ilana Primary Care Provider Wallace LARD TUB WASHER-C, Ilana Attending Provider Wallace LARD TUB WASHER-C, Ilana Referring Provider Wallace, Ilana Attending Unavailable Wallace, Ilana Primary Care Unavailable Wallace, Ilana Referring Unavailable Wallace, Ilana Primary Care Unavailable SEFERINO GONZALES Attending Unavailable Wallace, Ilana Referring Unavailable Wallace, Ilana Attending Unavailable Wallace, Ilana Primary Care Unavailable Wallace, Ilana Referring Unavailable Wallace, Ilana Attending Unavailable Wallace, Ilana Primary Care Unavailable Allergies Allergy Classification Reported Allergen(s) Allergy Type Date of Onset Reaction(s) Facility (6 sources) Penicillins; Translations: [Penicillins] Drug Allergy 04-10-2016 [facility] Medications Current Medications Medication Drug Class(es) Dates Sig (Normalized) Sig (Original) sertraline 100 mg oral tablet (4 sources) Serotonin Reuptake Inhibitor Start: 11-10-2023 Sertraline [...] Active Problems Problem Classification Problem Date Documented Da te Episodic/Chronic Contraceptive and procreative management (1 source) Intrauterine contraceptive device in situ; Translations: [Encounter for routine checking of intrauterine contraceptive device (IUD)] Onset: 02-28-2019 02-28-2019 Glaucoma (1 source) Ocular hypertension, bilateral; Translations: [Ocular hypertension, bilateral] Onset: 02-15-2025 Chronic Other gastrointestinal disorders (1 source) Diarrhea, unspecified; Translations: [Diarrhea, unspecified] Onset: 07-08-2025 Episodic Other non-traumatic joint disorders (9 sources) Pain in left knee; Translations: [Left knee pain] 11-10-2023 Episodic Other non-traumatic joint disorders (1 source) Pain in right knee; Translations: [Pain in joint, lower leg] 11-10-2023 Episodic Other non-traumatic joint disorders (1 source) Pain in unspecified joint; Translations: [Pain in unspecified joint] Onset: 07-03-2025 Episodic Other screening for suspected conditions (not mental disorders or infectious disease) (1 source) Encounter for other screening for malignant neoplasm of breast; Translations: [Encounter for other screening for malignant neoplasm of breast] Onset: 07-30-2025 Episodic Unclassified (1 source) Patient encounter status; [...] ; Translations: [] Onset: 03-06-2014 04-11-2016 [facility] Residual codes; unclassified (1 source) H/O: section; Translations: [Previous section complicating ] Onset: 04-10-2016 04-10-2016 [facility] Results Test Name Value Interpretation Reference Range Facility [facility] 8623on OP OVA AND PARASITES EXAM, ROUTINE These results were obtained using wet preparation(s) and trichrome stained smear. This test does not include testing for Crytosporidium parvum, Cyclospora, or Microsporidia. One negative specimen does not rule out the possibility of a parasitic infection. TESTING PERFORMED AT [facility]. ORIGINAL REPORT ON FILE IN LAB CONTAINS ADDITIONAL TEST SITE INFORMATION. Ova/Parasite Exam NO OVA, CYSTS, OR PARASITES FOUND. Normal [facility] Comment on above: Performed By: #### M 100.0605, M100.6796, M100.637, M600.5000 #### [facility] [address] [place], [place], [id number] CDIFF (PCR)on 07-02-2025 CDIFF Pending [phone] [id number] Presumptive Negative *for epidemiolologic???use C. Diff PCR Negative- No toxigenic C. Diff Detected Normal [facility] Comment on above: Performed By: #### M 100.0605, M100.6796, M100.637, M600.5000 #### [facility] [address] [place], [place], [id number] Clostridium difficile detect ion by polymerase chain reactionOrdered By: Ilana Gonsalez on 07-02-2025 C. difficile DNA JANUARY+probe Ql (Unsp spec) [facility] ENTERIC PATHOGEN PANEL STOOL on 07-02-2025 EP PANEL Normal Reference Ran ge = Not Detected Nucleic acid amplification test method Not detected for Campylobacter group, Salmonella species, Shigella species, Vibrio Group, Yersinia enterocolitica, EHEC (Shiga Toxin 1, Shiga Toxin 2), Norovirus Gl/Gll, and Rotavirus A. Other common stool pathogens are not detected on this panel include: Aeromonas/Plesiomonas or parasites. Order testing for these organisms separately if suspected. This is an amplified DNA test which makes it both specific and sensitive. CAMPYLOBACTER Not Detected Norovirus Not Detected Rotavirus Not Detected Salmonella Not Detected Shiga Toxin Not Detected Shigella sp. Not Detected VIBRIO Not Detected Yersinia Not Detected Normal [facility] Comment on above: Performed By: #### M 100.0605, M100.6796, M100.637, M600.5000 #### [facility] [address] [place], [address] Stool Lactoferrin/WBCon 06-14 WBCST Normal Reference Ran ge = Negative Fecal WBC Lactoferrin Negative: No Fecal WBC Lactoferrin present Normal [facility] Comment on above: Performed By: #### M 100.0605, M100.6796, M100.637, M600.5000 #### [facility] [address] [place], [address] Stool lactoferrin detection by immunoassayOrdered By: [facility] 07-[facility]-2025 Lactoferrin IA Ql (Stl) [facility] Absolute lymphocyte countOrd ered By: [facility] on 07-01-2025 Lymphocytes Auto (Unsp spec) [#/Vol] 0.90 10*3/uL 0.83-4.51 [facility] Absolute neutrophil countOrd ered By: [facility] on 07-01-2025 Neutrophils (Bld) [#/Vol] 4.7 10*3/uL 2.0-7.7 [facility] Anion gap in Serum or Plasma Ordered By: [facility] on 07-01-2025 Anion gap [Moles/Vol] 11 mmol/L 5- [facility] Automated lymphocyte count a s percentage of total leukocytesOrdered By: [facility] on 07-01-2025 Lymphocytes/100 WBC Auto (Unsp spec) 13.7 % Low - [facility] BUN/creatinine ratioOrdered By: [facility] on 07-01-2025 Urea nitrogen/Creatinine [Mass ratio] 15.5 mg/mg 10- [facility] Basophil percentageOrdered B y: [facility] on 07-01-2025 Basophils/100 WBC (Bld) 0.9 % 0-1 [facility] Bilirubin, totalOrdered By: [facility] on 07-01-2025 Bilirubin [Mass/Vol] 0.32 mg/dL 0.00-1.30 [facility] CBC W/Diff, Automatedon 06-14 Absolute Lymph 0.90 X10 3/uL Normal 0.83-4.51 [facility] Comment on above: Performed By: #### L 500.4050, L501.6710, L100.0100, L101.9900 #### [facility] [address] [place], [address] Absolute Neut 4.7 X10 3/uL Normal 2.0-7.7 [facility] Comment on above: Performed By: #### L 500.4050, L501.6710, L100.0100, L101.9900 #### [facility] [address] [place], [address] Basophils/100 WBC (Bld) 0.9 % Normal 0-1 [facility] Comment on above: Performed By: #### L 500.4050, L501.6710, L100.0100, L101.9900 #### [facility] [address] [place], [address] Eosinophils/100 WBC (Bld) 7.4 % High 0-5 [facility] Comment on above: Performed By: #### L 500.4050, L501.6710, L100.0100, L101.9900 #### [facility] [address] [place], [address] Erythrocyte distribution width (RBC) [Ratio] 11.9 % Normal 11.6-14.6 [facility] Comment on above: Performed By: #### L 500.4050, L501.6710, L100.0100, L101.9900 #### [facility] [address] [place], [address] Hematocrit (Bld) [Volume fraction] 35.7 % Low 37-47 [facility] Comment on above: Performed By: #### L 500.4050, L501.6710, L100.0100, L101.9900 #### [facility] [address] [place], [address] Hemoglobin (Bld) [Mass/Vol] 12.1 g/dL Normal 12.0-15.0 [facility] Comment on above: Performed By: #### L 500.4050, L501.6710, L100.0100, L101.9900 #### [facility] [address] [place], [address] IG% 0.500 Normal 0.0-0.9 [facility] Comment on above: Result Comment: IG% - Immature Granulocytes (promyelocytes, myelocytes and metamyelocytes) > 1% indicates that a LEFT SHIFT is Present. Performed By: #### L 500.4050, L501.6710, L100.0100, L101.9900 #### [facility] [address] [place], [address] Lymphocytes/100 WBC (Bld) 13.7 % Low 19-41 [facility] Comment on above: Performed By: #### L 500.4050, L501.6710, L100.0100, L101.9900 #### [facility] [address] [place], [address] MCH (RBC) [Entitic mass] 30.5 pg Normal 27.0-32.0 [facility] Comment on above: Performed By: #### L 500.4050, L501.6710, L100.0100, L101.9900 #### [facility] [address] [place], [address] MCHC (RBC) [Mass/Vol] 33.9 g/dL Normal 32-36 [facility] Comment on above: Performed By: #### L 500.4050, L501.6710, L100.0100, L101.9900 #### [facility] [address] [place], [address] MCV (RBC) [Entitic vol] 89.9 fL Normal 81-99 [facility] Comment on above: Performed By: #### L 500.4050, L501.6710, L100.0100, L101.9900 #### [facility] [address] [place], [address] Monocytes/100 WBC (Bld) 5.6 % Normal 0-10 [facility] Comment on above: Performed By: #### L 500.4050, L501.6710, L100.0100, L101.9900 #### [facility] [address] [place], [address] Neutrophils/100 WBC (Bld) 71.9 % High 47-70 [facility] Comment on above: Performed By: #### L 500.4050, L501.6710, L100.0100, L101.9900 #### [facility] [address] [place], [address] Nucleated RBC (Bld) [#/Vol] 0 10*3/uL Normal 0-5 [facility] Comment on above: Performed By: #### L 500.4050, L501.6710, L100.0100, L101.9900 #### [facility] [address] [place], [address] Platelet mean volume (Bld) [Entitic vol] 12.1 fL High 6.2-12.0 [facility] Comment on above: Performed By: #### L 500.4050, L501.6710, L100.0100, L101.9900 #### [facility] [address] [place], [address] Platelets (Bld) [#/Vol] 168 10*3/uL Normal 150-450 [facility] Comment on above: Performed By: #### L 500.4050, L501.6710, L100.0100, L101.9900 #### [facility] [address] [place], [address] RBC (Bld) [#/Vol] 3.97 10*6/uL Low 4.2-5.4 [facility] Comment on above: Performed By: #### L 500.4050, L501.6710, L100.0100, L101.9900 #### [facility] [address] [place], [address] RDW SD 39.4 fl Normal 35.1-43.9 [facility] Comment on above: Performed By: #### L 500.4050, L501.6710, L100.0100, L101.9900 #### [facility] [address] [place], [address] WBC (Bld) [#/Vol] 6.6 10*3/uL Normal 4.4-11.0 [facility] Comment on above: Performed By: #### L 500.4050, L501.6710, L100.0100, L101.9900 #### [facility] [address] [place], [address] CRPon 07-01-2025 C-REACTIVE PROT 13.50 mg/L High 0.0-3.0 [facility] Comment on above: Performed By: #### M 100.0605, M100.6796, M100.637, M600.5000 #### [facility] [address] [place], [address] Carbon dioxide, total [Moles /volume] in Central venous bloodOrdered By: Ilana Gonsalez on 07-01-2025 CO2 [Moles/Vol] 25.3 mmol/L 21.0-32.0 [facility] Chloride assayOrdered By: Ra kimberley Gonsalez on 07-01-2025 Chloride [Moles/Vol] 104 mmol/L 98-108 [facility] Comprehensive Metabolic Prof ilon 07-01-2025 Albumin [Mass/Vol] 4.0 g/dL Normal 3.5-5.0 [facility] Comment on above: Performed By: #### M 100.0605, M100.6796, M100.637, M600.5000 #### [facility] [address] [place], [address] Albumin/Globulin [Mass ratio] 1.4 {ratio} Normal 0.9-2.4 [facility] Comment on above: Performed By: #### M 100.0605, M100.6796, M100.637, M600.5000 #### [facility] [address] [place], [address] ALK PHOS 60 U/L Normal 35-104 [facility] Comment on above: Performed By: #### M 100.0605, M100.6796, M100.637, M600.5000 #### [facility] [address] [place], [address] ALT [Catalytic activity/Vol] 25 U/L Normal <=34 [facility] Comment on above: Performed By: #### M 100.0605, M100.6796, M100.637, M600.5000 #### [facility] [address] [place], [address] AST [Catalytic activity/Vol] 23 U/L Normal <=31 [facility] Comment on above: Performed By: #### M 100.0605, M100.6796, M100.637, M600.5000 #### [facility] [address] [place], [address] Bilirubin [Mass/Vol] 0.32 mg/dL Normal 0.00-1.30 [facility] Comment on above: Performed By: #### M 100.0605, M100.6796, M100.637, M600.5000 #### [facility] [address] [place], [address] BUN/CRE 15.5 RATIO Normal 10-20 [facility] Comment on above: Performed By: #### M 100.0605, M100.6796, M100.637, M600.5000 #### [facility] [address] [place], [address] Calcium [Mass/Vol] 9.1 mg/dL Normal 7.6-11.0 [facility] Comment on above: Performed By: #### M 100.0605, M100.6796, M100.637, M600.5000 #### [facility] [address] [place], [address] Chloride [Moles/Vol] 104 mmol/L Normal 98-108 [facility] Comment on above: Performed By: #### M 100.0605, M100.6796, M100.637, M600.5000 #### [facility] [address] [place], [address] CO2 [Moles/Vol] 25.3 mmol/L Normal 21.0-32.0 [facility] Comment on above: Performed By: #### M 100.0605, M100.6796, M100.637, M600.5000 #### [facility] [address] [place], [address] Creatinine [Mass/Vol] 0.80 mg/dL Normal 0.70-1.20 [facility] Comment on above: Performed By: #### M 100.0605, M100.6796, M100.637, M600.5000 #### [facility] [address] [place], [address] GAP 11 Normal 5-15 [facility] Comment on above: Performed By: #### M 100.0605, M100.6796, M100.637, M600.5000 #### [facility] [address] [place], [address] GFR/1.73 sq M.predicted among non-blacks MDRD (S/P/Bld) [Vol rate/Area] 93 mL/min/{1.73_m2} Normal >60 [facility] Comment on above: Result Comment: mL/m in/1.73m2 CKD-EPI Creatinine Equation (2020) Performed By: #### M 100.0605, M100.6796, M100.637, M600.5000 #### [facility] [address] [place], [address] Globulin (S) [Mass/Vol] 2.9 g/dL Normal 2.2-4.2 [facility] Comment on above: Performed By: #### M 100.0605, M100.6796, M100.637, M600.5000 #### [facility] [address] [place], [address] Glucose [Mass/Vol] 93 mg/dL Normal 70-99 [facility] Comment on above: Performed By: #### M 100.0605, M100.6796, M100.637, M600.5000 #### [facility] [address] [place], [address] Potassium [Moles/Vol] 3.7 mmol/L Normal 3.3-5.1 [facility] Comment on above: Performed By: #### M 100.0605, M100.6796, M100.637, M600.5000 #### [facility] [address] [place], [address] Sodium [Moles/Vol] 140 mmol/L Normal 133-145 [facility] Comment on above: Performed By: #### M 100.0605, M100.6796, M100.637, M600.5000 #### [facility] [address] [place], [address] T PROT 6.9 g/dL Normal 5.9-8.4 [facility] Comment on above: Performed By: #### M 100.0605, M100.6796, M100.637, M600.5000 #### [facility] [address] [place], [address] Urea nitrogen [Mass/Vol] 13 mg/dL Normal 4-19 [facility] Comment on above: Performed By: #### M 100.0605, M100.6796, M100.637, M600.5000 #### [facility] [address] [place], [address] Eosinophil percentageOrdered By: Ilana Gonsalez on 07-01-2025 Eosinophils/100 WBC (Bld) 7.4 % High 0-5 [facility] Erythrocyte Sed Rateon 07-01 SED RATE 7 mm/hr Normal 0-30 [facility] Comment on above: Performed By: #### M 100.0605, M100.6796, M100.637, M600.5000 #### [facility] [address] [place], [place], [address] Erythrocyte distribution wid th ratioOrdered By: Ilanaarslan Gonsalez on 07-01-2025 Erythrocyte distribution width (RBC) [Ratio] 11.9 % 11.6-14.6 [facility] Erythrocyte distribution wid th standard deviationOrdered By: Hebron Wallace on 07-01-2025 Erythrocyte distribution width (RBC) [Ratio] 39.4 fl 35.1-43.9 [facility] Erythrocyte sedimentation ra teOrdered By: Ilana Gonsalez on 07-01-2025 ESR (Bld) [Velocity] 7 mm/h 0-30 [facility] Glomerular filtration rate ( GFR) estimation/1.73 sq m using serum, plasma, or whole bOrdered By: Ilanaarslan Gonsalez on 07-01-2025 GFR/1.73 sq M.predicted among non-blacks MDRD (S/P/Bld) [Vol rate/Area] 93 mL/min/{1.73_m2} >60 [facility] Comment on above: mL/min/1.73m2 CKD-EP I Creatinine Equation (2020) Hematocrit Auto (Bld) [Volum e fraction]Ordered By: Ilana Gonsalez on 07-01-2025 Hematocrit (Bld) [Volume fraction] 35.7 % Low 37-47 [facility] Hemoglobin measurementOrdere d By: Ilana Gonsalez on 07-01-2025 Hemoglobin (Bld) [Mass/Vol] 12.1 g/dL 12.0-15.0 [facility] Immature granulocytes/100 WB C Auto (Bld)Ordered By: Ilana Gonsalez on 07-01-2025 Immature granulocytes/100 WBC (Bld) 0.500 % 0.0-0.9 [facility] Comment on above: IG% - Immature Granu locytes (promyelocytes, myelocytes and metamyelocytes) > 1% indicates that a LEFT SHIFT is Present. Laboratory - Chemistry and C hemistry - challengeOrdered By: Ilana Gonsalez on 07-01-2025 AST [Catalytic activity/Vol] 23 U/L <32 [facility] MCV (mean corpuscular volume ) determinationOrdered By: Ilana Gonsalez on 07-01-2025 MCV (RBC) [Entitic vol] 89.9 fL 81-99 [facility] Mean corpuscular hemoglobin (MCH) determinationOrdered By: Ilana Gonsalez on 07-01-2025 MCH (RBC) [Entitic mass] 30.5 pg 27.0-32.0 [facility] Mean corpuscular hemoglobin concentration (MCHC) determinationOrdered By: Ilana Gonsalez on 07-01-2025 MCHC (RBC) [Mass/Vol] 33.9 g/dL 32-36 [facility] Mean platelet volume determi nationOrdered By: Ilana Gonsalez on 07-01-2025 Platelet mean volume (Bld) [Entitic vol] 12.1 fL High 6.2-12.0 [facility] Monocyte percentageOrdered B y: Ilana Gonsalez on 07-01-2025 Monocytes/100 WBC (Bld) 5.6 % 0-10 [facility] Neutrophil percentageOrdered By: Ilana Gonsalez on 07-01-2025 Neutrophils/100 WBC (Bld) 71.9 % High 47-70 [facility] Nucleated red blood cell per centageOrdered By: Ilana Gonsalez on 07-01-2025 Nucleated RBC/100 WBC (Bld) [Ratio] 0 % 0-5 [facility] Platelet countOrdered By: Ra kimberley Gonsalez on 07-01-2025 Platelets (Bld) [#/Vol] 168 10*3/uL 150-450 [facility] Potassium measurement (mass/ volume)Ordered By: Ilana Gonsalez on 07-01-2025 Potassium (Unsp spec) [Mass/Vol] 3.7 mmol/L 3.3-5.1 [facility] RBC Auto (Bld) [#/Vol]Ordere d By: Ilana Gonsalez on 07-01-2025 RBC (Bld) [#/Vol] 3.97 10*6/uL Low 4.2-5.4 [facility] Serum creatinine measurement (mass/volume)Ordered By: Ilana Gonsalez on 07-01-2025 Creatinine [Mass/Vol] 0.80 mg/dL 0.70-1.20 [facility] Serum globulin measurementOr dered By: Ilana Gonsalez on 07-01-2025 Globulin (S) [Mass/Vol] 2.9 g/dL 2.2-4.2 [facility] Serum glucose measurement (m ass/volume)Ordered By: Ilana Gonsalez 07-01-2025 Glucose [Mass/Vol] 93 mg/dL 70-99 [facility] Serum or plasma C reactive p rotein measurement (mass/volume)Ordered By: Ilana Gonsalez 07-01-2025 CRP [Mass/Vol] 13.50 mg/L High 0.0-3.0 [facility] Serum or plasma alanine arthur otransferase (ALT) measurementOrdered By: Ilana Gonsalez 07-01-2025 ALT [Catalytic activity/Vol] 25 U/L <35 [facility] Serum or plasma albumin danish urement (mass/volume)Ordered By: Ilana Gonsalez 07-01-2025 Albumin [Mass/Vol] 4.0 g/dL 3.5-5.0 [facility] Serum or plasma albumin/glob ulin mass ratioOrdered By: Ilana Gonsalez 07-01-2025 Albumin/Globulin [Mass ratio] 1.4 {ratio} 0.9-2.4 [facility] Serum or plasma alkaline jacqueline sphatase measurementOrdered By: Ilanaarslan Gonsalez 07-01-2025 ALP [Catalytic activity/Vol] 60 U/L 35-104 [facility] Serum or plasma calcium danish urement (mass/volume)Ordered By: Ilana Gonsalez on 07-01-2025 Calcium [Mass/Vol] 9.1 mg/dL 7.6-11.0 [facility] Serum or plasma urea nitroge n measurement (mass/volume)Ordered By: Ilana Gonsalez on 07-01-2025 Urea nitrogen [Mass/Vol] 13 mg/dL 4-19 [facility] Sodium levelOrdered By: Kelly Gonsalez on 07-01-2025 Sodium [Moles/Vol] 140 mmol/L 133-145 [facility] Total proteinOrdered By: Emilio Gonsalez on 07-01-2025 Protein [Mass/Vol] 6.9 g/dL 5.9-8.4 [facility] White blood cell (WBC) count Ordered By: Ilana Hutchisongar on 07-01-2025 WBC (Bld) [#/Vol] 6.6 10*3/uL 4.4-11.0 [facility] Thyroid Peroxidase ABon 11-14 THYR PEROX AB 14 IU/mL Normal 0-34 [facility] Comment on above: Result Comment: Perf ormed at: - [facility] [address] [id number] Staff Development Coordinator Rn: Moncho Villaseñor PhD, Phone: [phone] Performed By: #### L 100.0100, L501.9186, L501.9310, L501.9520, L3300.6900 #### [facility] [address] [place] [address], [address] Absolute neutrophil counton 11-27-2024 Neutrophils (Bld) [#/Vol] 5.1 10*3/uL 2.0-7.7 [facility] Basophil percentageon 2024 Basophils/100 WBC (Bld) 0.8 % 0-1 [facility] CBC W/Diff, Automatedon 11-14 Absolute Lymph 1.75 X10 3/uL Normal 0.83-4.51 [facility] Comment on above: Performed By: #### L 100.0100, L501.9186, L501.9310, L501.9520, L3300.6900 #### [facility] [address] [place], [address] Absolute Neut 5.1 X10 3/uL Normal 2.0-7.7 [facility] Comment on above: Performed By: #### L 100.0100, L501.9186, L501.9310, L501.9520, L3300.6900 #### [facility] [address] [place], [address] Basophils/100 WBC (Bld) 0.8 % Normal 0-1 [facility] Comment on above: Performed By: #### L 100.0100, L501.9186, L501.9310, L501.9520, L3300.6900 #### [facility] [address] [place], [address] Eosinophils/100 WBC (Bld) 2.9 % Normal 0-5 [facility] Comment on above: Performed By: #### L 100.0100, L501.9186, L501.9310, L501.9520, L3300.6900 #### [facility] [address] [place], [address] Erythrocyte distribution width (RBC) [Ratio] 12.2 % Normal 11.6-14.6 [facility] Comment on above: Performed By: #### L 100.0100, L501.9186, L501.9310, L501.9520, L3300.6900 #### [facility] [address] [place], [address] Hematocrit (Bld) [Volume fraction] 43.0 % Normal 37-47 [facility] Comment on above: Performed By: #### L 100.0100, L501.9186, L501.9310, L501.9520, L3300.6900 #### [facility] [address] [place], [address] Hemoglobin (Bld) [Mass/Vol] 14.4 g/dL Normal 12.0-15.0 [facility] Comment on above: Performed By: #### L 100.0100, L501.9186, L501.9310, L501.9520, L3300.6900 #### [facility] [address] [place], [address] IG% 0.300 Normal 0.0-0.9 [facility] Comment on above: Result Comment: IG% - Immature Granulocytes (promyelocytes, myelocytes and metamyelocytes) > 1% indicates that a LEFT SHIFT is Present. Performed By: #### L 100.0100, L501.9186, L501.9310, L501.9520, L3300.6900 #### [facility] [address] [place], [address] Lymphocytes/100 WBC (Bld) 22.8 % Normal 19-41 [facility] Comment on above: Performed By: #### L 100.0100, L501.9186, L501.9310, L501.9520, L3300.6900 #### [facility] [address] [place], [address] MCH (RBC) [Entitic mass] 30.5 pg Normal 27.0-32.0 [facility] Comment on above: Performed By: #### L 100.0100, L501.9186, L501.9310, L501.9520, L3300.6900 #### [facility] [address] [place], [address] MCHC (RBC) [Mass/Vol] 33.5 g/dL Normal 32-36 [facility] Comment on above: Performed By: #### L 100.0100, L501.9186, L501.9310, L501.9520, L3300.6900 #### [facility] [address] [place], [address] MCV (RBC) [Entitic vol] 91.1 fL Normal 81-99 [facility] Comment on above: Performed By: #### L 100.0100, L501.9186, L501.9310, L501.9520, L3300.6900 #### [facility] [address] [place], [address] Monocytes/100 WBC (Bld) 6.9 % Normal 0-10 [facility] Comment on above: Performed By: #### L 100.0100, L501.9186, L501.9310, L501.9520, L3300.6900 #### [facility] [address] [place], [address] Neutrophils/100 WBC (Bld) 66.3 % Normal 47-70 [facility] Comment on above: Performed By: #### L 100.0100, L501.9186, L501.9310, L501.9520, L3300.6900 #### [facility] [address] [place], [address] Nucleated RBC (Bld) [#/Vol] 0 10*3/uL Normal 0-5 [facility] Comment on above: Performed By: #### L 100.0100, L501.9186, L501.9310, L501.9520, L3300.6900 #### [facility] [address] [place], [address] Platelet mean volume (Bld) [Entitic vol] 11.4 fL Normal 6.2-12.0 [facility] Comment on above: Performed By: #### L 100.0100, L501.9186, L501.9310, L501.9520, L3300.6900 #### [facility] [address] [place], [address] Platelets (Bld) [#/Vol] 235 10*3/uL Normal 150-450 [facility] Comment on above: Performed By: #### L 100.0100, L501.9186, L501.9310, L501.9520, L3300.6900 #### [facility] [address] [place], [address] RBC (Bld) [#/Vol] 4.72 10*6/uL Normal 4.2-5.4 [facility] Comment on above: Performed By: #### L 100.0100, L501.9186, L501.9310, L501.9520, L3300.6900 #### [facility] [address] [place], [address] RDW SD 40.3 fl Normal 35.1-43.9 [facility] Comment on above: Performed By: #### L 100.0100, L501.9186, L501.9310, L501.9520, L3300.6900 #### [facility] [address] [place], [address] WBC (Bld) [#/Vol] 7.7 10*3/uL Normal 4.4-11.0 [facility] Comment on above: Performed By: #### L 100.0100, L501.9186, L501.9310, L501.9520, L3300.6900 #### [facility] [address] [place], [address] Eosinophil percentageon 11-14 Eosinophils/100 WBC (Bld) 2.9 % 0-5 [facility] Erythrocyte distribution wid th (RBC) [Ratio]on 11-27-2024 Erythrocyte distribution width (RBC) [Entitic vol] 40.3 fL 35.1-43.9 [facility] Erythrocyte distribution wid th ratioon 11-27-2024 Erythrocyte distribution width (RBC) [Ratio] 12.2 % 11.6-14.6 [facility] Hematocrit Auto (Bld) [Volum e fraction]on 11-27-2024 Hematocrit (Bld) [Volume fraction] 43.0 % 37-47 [facility] Hemoglobin measurementon Hemoglobin (Bld) [Mass/Vol] 14.4 g/dL 12.0-15.0 [facility] Immature granulocytes/100 WB C Auto (Bld)on 11-27-2024 Immature granulocytes/100 WBC (Bld) 0.300 % 0.0-0.9 [facility] Comment on above: IG% - Immature Granu locytes (promyelocytes, myelocytes and metamyelocytes) > 1% indicates that a LEFT SHIFT is Present. Lymphocytes Auto (Unsp spec) [#/Vol]on 11-27-2024 Lymphocytes (Bld) [#/Vol] 1.75 10*3/uL 0.83-4.51 [facility] Lymphocytes/100 WBC Auto (Un sp spec)on 11-27-2024 Lymphocytes/100 WBC (Bld) 22.8 % 19-41 [facility] MCV (mean corpuscular volume ) determinationon 11-27-2024 MCV (RBC) [Entitic vol] 91.1 fL 81-99 [facility] Mean corpuscular hemoglobin (MCH) determinationon 11-27-2024 MCH (RBC) [Entitic mass] 30.5 pg 27.0-32.0 [facility] Mean corpuscular hemoglobin concentration (MCHC) determinationon 11-27-2024 MCHC (RBC) [Mass/Vol] 33.5 g/dL 32-36 [facility] Mean platelet volume determi nationon 11-27-2024 Platelet mean volume (Bld) [Entitic vol] 11.4 fL 6.2-12.0 [facility] Monocyte percentageon 2024 Monocytes/100 WBC (Bld) 6.9 % 0-10 [facility] Neutrophil percentageon 11-14 Neutrophils/100 WBC (Bld) 66.3 % 47-70 [facility] Nucleated red blood cell per centageon 11-27-2024 Nucleated RBC/100 WBC (Bld) [Ratio] 0 % 0-5 [facility] Platelet counton 11-27-2024 Platelets (Bld) [#/Vol] 235 10*3/uL 150-450 [facility] RBC Auto (Bld) [#/Vol]on RBC (Bld) [#/Vol] 4.72 10*6/uL 4.2-5.4 [facility] Serum or plasma thyroxine (T 4) measurement (mass/volume)on 11-27-2024 T4 [Mass/Vol] 9.8 ug/dL 4.8-13.9 [facility] T3 IA [Mass/Vol]on Total Triiodothyronine 0.91 ng/mL 0.6-1.81 [facility] T3 Total - Triiodothyronineo n 11-27-2024 T3 Total 0.91 ng/mL Normal 0.6-1.81 [facility] Comment on above: Performed By: #### L 100.0100, L501.9186, L501.9310, L501.9520, L3300.6900 #### [facility] [address] [place], [place], [id number] T4 Total, Thyroxinon 025 T4 [Mass/Vol] 9.8 ug/dL Normal 4.8-13.9 [facility] Comment on above: Performed By: #### L 100.0100, L501.9186, L501.9310, L501.9520, L3300.6900 #### [facility] [address] [place], [place], [id number] TPO Ab Qnon 11-27-2024 Thyroid Peroxidase Antibodies 14 IU/mL 0-34 [facility] Comment on above: Performed at: [facility] [address] [id number] Director: Moncho Villaseñor PhD, Phone: [phone] TSH Qnon 11-27-2024 Thyroid Stimulating Hormone (TSH) 1.700 uIU/mL 0.358-3.740 [facility] Thyroid Stim Hormone (TSH)on 11-27-2024 TSH 1.700 uIU/mL Normal 0.358-3.740 [facility] Comment on above: Performed By: #### L 100.0100, L501.9186, L501.9310, L501.9520, L3300.6900 #### [facility] [place], [address] White blood cell (WBC) count on 11-27-2024 WBC (Bld) [#/Vol] 7.7 10*3/uL 4.4-11.0 [facility] Physician Progress No peg 01-02-2024 [facility] Physician Progress Note YUE HIGHTOWER :1980 Registration Date:01/02/2024 Assessment/Plan This Visit Diagnosis 1. Encounter for annual routine gynecological examination Z01.419 pap/hpv neg 11/2022 MVI exercise f/u 1 yr and prn Ordered: AMB Preventive Est Age 40-64 [address], 01/02/2024 08:24:00 EST, Encounter for annual routine gynecological examination / Screening mammogram, encounter for / IUD check up 2. Screening mammogram, encounter for Z12.31 order placed for mammogram Ordered: AMB Preventive Est Age 40-64 [address], 01/02/2024 08:24:00 EST, Encounter for annual routine gynecological examination / Screening mammogram, encounter for / IUD check up MAMM DIGITAL SCRN BILATERAL, 01/02/2024, Routine, SCREENING, Ambulatory, Screening mammogram, encounter for 3. IUD check up Z30.431 iud strings seen was replaced 04/2023 Ordered: AMB Preventive Est Age 40-64 [address], 01/02/2024 08:24:00 EST, Encounter for annual routine [...] normal. Extremities: No clubbing, Cyanosis or edema SENIOR SOFTWARE QA ENGINEER EXAM: Breast exam: normal bilateral breast tissue, [...] midline, NT adnexa: NT and no masses SENIOR SOFTWARE QA ENGINEER Additional Details-Patient Stated Menstrual History Menstrual StatusProphylaxis SENIOR SOFTWARE QA ENGINEER Screening Date of Last Pap Smear 12/02/2022 Last Pap Result, Pt StatedNegative Last Pap Result CommentNeg HPV Last Mammography Result, Pt StatedBenign Last Mammography Result CommentCat 2 Benign Contraception Contraception MethodIUD IUD TypeMirena IUD Insertion Date04/26/2023 (LOT#: [id number]) IUD Expiration Date04/26/2031 OB History History (1,1,0,2) # 1 Baby 1 Outcome Date: 07/2014 Outcome or Result: Gest Age: 40 weeks Outcome: Live Sex: Male Wt: 3345 g Hospital: Dr. Camara # 2 Baby 1 Outcome Date: 04/11/2016 Outcome or Result: Gest Age: 34 weeks 1 days Outcome: Live Sex: Male Wt: 2438 g Hospital: [facility] Problem List/Past Medical History Ongoing Acne Anemia Anxiety IUD check up PFD (pelvic floor dysfunction) Vulvar vestibulitis Historical Procedure/Surgical History Mammogram: Cat 2 Benign: 06/24/23 Mirena insertion (LOT# [id number]): 04/26/23 Pap: Neg w/Neg HPV: 12/02/22 : 2013 carpal tunnel release: 2012 wisdom teeth: 2011 lipoma resection: 1998 (more content not included)... Normal [facility] Ambulatory Clinical Summaryo n 01-02-2024 Ambulatory Clinical Summary YUE HIGHTOWER :1980 Registration Date:01/02/2024 Ambulatory Visit Instructions Your Diagnosis Encounter for annual routine gynecological examination Screening mammogram, encounter for IUD check up Your Care Team Attending Physician - VIJAY SORIANO CNP Primary Care Physician - LEONARDO [facility], 837 Procedures Performed Mammogram: Cat 2 Benign (06/24/2023) Mirena insertion (LOT# [id number]) (04/26/2023) Pap: Neg w/Neg HPV (12/02/2022) (2013) [...] call to get immediate medical attention! Normal [facility] Comprehensive Intake - Texto n 01-02-2024 Comprehensive [...] last 48 hours. : No Silva Ko - 01/02/2024 7:56 EST Depression Screening Is patient currently : None of the Below Feeling Down, Depressed, Hopeless : Not at all Little Interest - Pleasure in Activities : Not at all Initial Depression Screen Score : 0 Depression Screening Score 0 : No Silva Ko - 01/02/2024 7:58 EST Falls Risk Assessment Is [...] Silva Ko - 01/02/2024 7:56 EST Normal [facility] SENIOR SOFTWARE QA ENGINEER Visit - Texton 4 SENIOR SOFTWARE QA ENGINEER Visit - Text SENIOR SOFTWARE QA ENGINEER Visit Entered On : 01/02/2024 7:57 EST Performed On: 01/02/2024 7:57 EST by Silva Ko SENIOR SOFTWARE QA ENGINEER Menstrual History Menstrual Status : Prophylaxis Silva Ko - 01/02/2024 8:09 EST SENIOR SOFTWARE QA ENGINEER Screenings Date of Last Pap Smear : [...] Mirena IUD Insertion Date : 04/26/2023 (LOT#: [id number]) IUD Expiration Date : 04/26/2031 Silva Ko - 01/02/2024 7:57 EST Normal [facility] SDOH Screening Assessment - Texton 01-02-2024 SDOH Screening Assessment - Text Social Determinants of Health Screening Assessment Entered On: 01/02/2024 8:09 EST Performed On: 01/02/2024 8:09 EST by Silva Ko Social Determinants of Health (SDOH) - screen 1. Is the patient agreeable to providing responses to the SDOH Screening Assessment? : No Silva Ko - 01/02/2024 8:09 EST Normal [facility] SENIOR SOFTWARE QA ENGINEER Visit - Texton 4 SENIOR SOFTWARE QA ENGINEER Visit - Text SENIOR SOFTWARE QA ENGINEER Visit Entered On : 12/29/2023 12:48 EST Performed On: 12/29/2023 12:47 EST by Silva Ko SENIOR SOFTWARE QA ENGINEER Menstrual History Menstrual Status : Menarcheal Silva Ko - 12/29/2023 12:47 EST SENIOR SOFTWARE QA ENGINEER Screenings Date of Last Pap Smear : 12/02/2022 Last Pap Result : Negative Last Pap Result Comment : Neg HPV Date of Last Mammogram : 06/24/2023 Last Mammography Result : Benign Last Mammography Result Comment : Cat 2 Benign Silva Ko - 12/29/2023 12:47 EST Contraception IUD Type : Mirena IUD Insertion Date : 04/26/2023 (LOT#: [id number]) IUD Expiration Date : 04/26/2031 Silva Ko - 12/29/2023 12:47 EST Normal [facility] Absolute lymphocyte countOrd ered By: Aditi Almaraz on 05-19-2023 Lymphocytes Auto (Unsp spec) [#/Vol] 1.61 10*3/uL 0.83-4.51 [facility] Basophil percentageOrdered B y: Aditi Almaraz on 05-19-2023 Basophils/100 WBC (Bld) 0.7 % 0-1 [facility] Bilirubin [Mass/Vol] 0.40 mg/dL 0.20-1.00 [facility] Comment on above: For patients on eltr ombopag therapy, use of Dimension Starlight TBIL is not recommended. Chloride [Moles/Vol] 105 mmol/L 98-107 [facility] Cholesterol [Mass/Vol] 166 mg/dL <200 [facility] Comment on above: <200 mg/dL Desirable 200-240 mg/dL Borderline >240 mg/dL High Risk Eosinophils/100 WBC (Bld) 4.5 % 0-5 [facility] Glucose [Mass/Vol] 101 mg/dL 74-106 [facility] Comment on above: Fasting Glucose resu lt from 100 to 125 mg/dL suggests IMPAIRED HOMEOSTASIS per A.D.A. criteria. Neutrophils (Bld) [#/Vol] 4.4 10*3/uL 2.0-7.7 [facility] Neutrophils/100 WBC (Bld) 63.6 % 47-70 [facility] Potassium [Moles/Vol] 3.9 mmol/L 3.5-5.1 [facility] Protein [Mass/Vol] 7.8 g/dL 6.4-8.2 [facility] Sodium [Moles/Vol] 138 mmol/L 136-145 [facility] Triglyceride [Mass/Vol] 123 mg/dL <199 [facility] Comment on above: The drugs N-Acetylcy steine and Metamizole may falsely depress this assay.Serum Triglycerides Reference Interval Normal <150 mg/dL Borderline high 150 - 199 mg/dL High 200 - 499 mg/dL Very High > or = 500 mg/dL WBC (Bld) [#/Vol] 6.9 10*3/uL 4.4-11.0 [facility] Blood erythrocytes count (nu mber/volume)Ordered By: Aditi Almaraz on 05-19-2023 RBC (Bld) [#/Vol] 4.59 10*6/uL 4.2-5.4 [facility] Blood hemoglobin measurement (mass/volume)Ordered By: Aditi Almaraz on 05-19-2023 Hemoglobin (Bld) [Mass/Vol] 13.9 g/dL 12.0-15.0 [facility] Blood lymphocytes/100 leukoc ytesOrdered By: Aditi Almaraz on 05-19-2023 Lymphocytes/100 WBC (Bld) 23.5 % 19-41 [facility] Blood monocytes/100 leukocyt esOrdered By: Aditi Almaraz on 05-19-2023 Monocytes/100 WBC (Bld) 7.6 % 0-10 [facility] Blood platelet mean volumeOr dered By: Aditi Almaraz on 05-19-2023 Platelet mean volume (Bld) [Entitic vol] 12.1 fL 6.2-12.0 [facility] Determination of erythrocyte mean corpuscular volume (MCV)Ordered By: Aditi Almaraz on 05-19-2023 MCV (RBC) [Entitic vol] 93.7 fL 81-99 [facility] Hematocrit Auto (Bld) [Volum e fraction]Ordered By: Aditi Almaraz on 05-19-2023 Hematocrit (Bld) [Volume fraction] 43.0 % 37-47 [facility] - Chemistry and C hemistry - challengeOrdered By: Aditi Almaraz on 05-19-2023 ALP [Catalytic activity/Vol] 55 U/L 45-117 [facility] ALT [Catalytic activity/Vol] 20 U/L 13-56 [facility] CO2 [Moles/Vol] 28.0 mmol/L 21.0-32.0 [facility] Globulin (S) [Mass/Vol] 3.8 g/dL 2.2-4.2 [facility] Urea nitrogen/Creatinine [Mass ratio] 11.6 mg/mg 10-20 [facility] - Hematology and Cell countsOrdered By: Aditi Almaraz on 05-19-2023 Erythrocyte distribution width (RBC) [Entitic vol] 41.7 fL 35.1-43.9 [facility] Erythrocyte distribution width (RBC) [Ratio] 12.1 % 11.6-14.6 [facility] Immature granulocytes/100 WBC (Bld) 0.100 % 0.0-0.9 [facility] Comment on above: IG% - Immature Granu locytes (promyelocytes, myelocytes and metamyelocytes) > 1% indicates that a LEFT SHIFT is Present. MCH (RBC) [Entitic mass] 30.3 pg 27.0-32.0 [facility] Nucleated RBC/100 WBC (Bld) [Ratio] 0 % 0-5 [facility] MCHC Auto (RBC) [Mass/Vol]Or dered By: Aditi Almaraz on 05-19-2023 MCHC (RBC) [Mass/Vol] 32.3 g/dL 32-36 [facility] No Panel InformationOrdered By: Aditi Almaraz on 05-19-2023 Estimated GFR (MDRD) Amer 93 mL/min >60 [facility] Comment on above: GFR Calc Estimated GFR (MDRD) Non-Af Amer 77 mL/min >60 [facility] Comment on above: Non- GFR Calc Thyroid Stimulating Hormone (TSH) 1.25 uIU/mL 0.358-3.74 [facility] Platelets bldOrdered By: Wendy Almaraz on 05-19-2023 Platelets (Bld) [#/Vol] 223 10*3/uL 150-450 [facility] Serum or plasma albumin danish urement (mass/volume)Ordered By: Aditi Almaraz on 05-19-2023 Albumin [Mass/Vol] 4.0 g/dL 3.2-5.0 [facility] Serum or plasma albumin/glob ulin mass ratioOrdered By: Aditi Almaraz on 05-19-2023 Albumin/Globulin [Mass ratio] 1.1 {ratio} 0.9-2.4 [facility] Serum or plasma calcium danish urement (mass/volume)Ordered By: Aditi Almaraz on 05-19-2023 Calcium [Mass/Vol] 9.3 mg/dL 8.5-10.1 [facility] Serum or plasma cholesterol in HDL measurement (mass/volume)Ordered By: Aditi Almaraz on 05-19-2023 Cholesterol in HDL [Mass/Vol] 43 mg/dL >40 [facility] Comment on above: The drugs N-Acetylcy steine and Metamizole may falsely depress this assay. Reference Range HDL <40 mg/dL Low HDL Cholesterol HDL >or= 60 mg/dL High HDL Cholesterol Serum or plasma cholesterol in VLDL measurement (mass/volume)Ordered By: Aditi Almaraz on 05-19-2023 Cholesterol in VLDL [Mass/Vol] 25 mg/dL 5-40 [facility] Serum or plasma creatinine m easurement (mass/volume)Ordered By: Aditi Almaraz on 05-19-2023 Creatinine [Mass/Vol] 0.86 mg/dL 0.55-1.02 [facility] Comment on above: The validity of the calculated GFR & GFRAA in patients over 70 years has not been determined. Clinical correlation is essential. Serum or plasma low density lipoprotein (LDL) cholesterol measurement (mass/volume)Ordered By: Aditi Almaraz on 05-19-2023 Cholesterol in LDL [Mass/Vol] 98 mg/dL 0-130 [facility] Serum or plasma urea nitroge n measurement (mass/volume)Ordered By: Aditi Almaraz on 05-19-2023 Urea nitrogen [Mass/Vol] 10 mg/dL 7-18 [facility] Thin prep Papanicolaou smear with manual screeningOrdered By: Aditi Almaraz on 05-19-2023 Thin prep Papanicolaou smear with manual screening 13 U/L 15-37 [facility] Thin prep Papanicolaou smear with manual screening 5 5-15 [facility] Whole blood hemoglobin A1c/t otal hemoglobin ratio (mass fraction)Ordered By: Aditi Almaraz on 05-19-2023 HbA1c (Bld) [Mass fraction] 5.4 % 3.8-5.6 [facility] Comment on above: Normal < [...] Silva Ko - 04/26/2023 13:51 EDT Normal [facility] Amb Office-Progress Notes-Pr ovideron 04-26-2023 Amb Office-Progress Notes-Provider Assessment/Plan This Visit Diagnosis 1. Negative test Z32.02 Ordered: AMB Urine POC 09508, 04/26/2023 13:51:00 EDT, Negative test 2. Encounter for IUD removal and reinsertion Z30.433 Mirena removed without difficulty New Mirena placed easily discussed s/s to call for f/u prn and at annual in Nov Ordered: levonorgestrel(Mirena (levonorgestrel) 52 mg intrauteral device), 1 EA, Intrauteral, ONCE AMB Insert Intrauterine Device [id number], 04/26/2023 14:25:00 EDT, Encounter for IUD removal and reinsertion, 1 AMB Remove Intrauterine Device [id number], 04/26/2023 14:25:00 EDT, Encounter for IUD removal [...] No (04/26/23 13:29:00) Reviewed VS and stable SENIOR SOFTWARE QA ENGINEER: External genitalia: normal, no lesions Urethra: normal meatus Vagina: normal no lesions, spotty discharge, vault normal Cervix: no lesions, no cervical motion tenderness, normal appearance Uterus: normal mobility, non-tender, normal size, shape and consistency Adnexa: normal, non-tender Perineum: no hemorrhoids, masses or warts noted SENIOR SOFTWARE QA ENGINEER Procedure Details Procedure: IUD Removal Confirmed consent [...] and symptoms reviewed,need for annual exam reviewed SENIOR SOFTWARE QA ENGINEER Additional Details-Patient Stated Menstrual History Menstrual StatusMenarcheal Last Menstrual Intfgw7604/23/2023 SENIOR SOFTWARE QA ENGINEER Screening Date of Last Pap Smear 12/02/22 Last Pap Result, Pt StatedNegative Last Pap Result CommentNeg HPV Last Mammography Result, Pt StatedBenign Contraception Contraception MethodIUD IUD TypeMirena IUD Insertion Date04/26/2023 (LOT#: [id number]) IUD Expiration Date04/26/2031 OB History History (1,1,0,2) # 1 Baby 1 Outcome Date: 07/2014 Outcome or Result: Gest Age: 40 weeks Outcome: Live Sex: Male Wt: 3345 g Hospital: Dr. [facility] # 2 Baby 1 Outcome Date: 04/11/2016 Outcome or Result: Gest Age: 34 weeks 1 days Outcome: Live Sex: Male Wt: 2438 g Hospital: [facility] Problem List/Past Medical History Ongoing Acne Anemia [...] hCG Ql Negative 04/26/2023 13:51 EDT Normal [facility] Ambulatory Clinical Summaryo n 04-26-2023 Ambulatory Clinical Summary YUE HIGHTOWER :1980 Visit Date:04/26/2023 Ambulatory Visit Instructions Your Diagnosis Negative test Encounter for IUD removal and reinsertion Tests Performed AMB Urine POC 78445 Your Care Team Attending Physician - VIJAY SORIANO CNP Primary Care Physician - ALYX ASHLEY Procedures Performed Mirena insertion (LOT# [id number]) (04/26/2023) Pap: Neg w/Neg HPV (12/02/2022) (2013) carpal tunnel release (2012) wisdom teeth (2011) lipoma resection (1998) Discharge Vitals Blood Pressure 116/72 Height 59.06 in (150 cm) Weight 143.55 lb (65.1 kg) BMI 28.93 Systolic Blood Pressure: 116 mmHg (04/26/23 13:29:00) Diastolic Blood Pressure: 72 mmHg (04/26/23 13:29:00) Mean Arterial Pressure: 87 mmHg (04/26/23 13:29:00) Height/Length Measured: 150 cm (04/26/23 13:29:00) Weight [...] oral tablet) Test Results AMB Urine POC 59902 (04/26/2023) U beta hCG Ql - Negative [...] call to get immediate medical attention! Normal [facility] Comprehensive Intake - Texto n 04-26-2023 Comprehensive Intake - Text Comprehensive Intake Entered On: 04/26/2023 13:30 EDT Performed On: 04/26/2023 13:29 EDT by Silva Ko Last Menstrual Period : 04/23/2023 EDT Menstrual [...] ft 11 in, 59.06 in) Silva Ko 04/26/2023 13:29 EDT Vitals Require BP : [...] risk situation (congregated living, hemodialysis, infusion clinic, alf, assisted living, usp, homeless prison, etc.)? : No Silva Ko 04/26/2023 13:29 EDT Depression Screening Is patient [...] Silva Ko - 04/26/2023 13:29 EDT Normal [facility] SENIOR SOFTWARE QA ENGINEER Visit - [employer] SENIOR SOFTWARE QA ENGINEER Visit - Text SENIOR SOFTWARE QA ENGINEER Visit Entered On : 04/26/2023 13:31 EDT Performed On: 04/26/2023 13:30 EDT by Silva Ko SENIOR SOFTWARE QA ENGINEER Menstrual History Last Menstrual Period : 04/23/2023 EDT Silva Ko - 04/26/2023 13:41 EDT Menstrual Status : Menarcheal Silva Ko - 04/26/2023 13:30 EDT SENIOR SOFTWARE QA ENGINEER Screenings Date of colo/rectal cancer screen : [...] EDT IUD Insertion Date : 04/26/2023 (LOT#: [id number]) Silva Ko - 04/26/2023 13:47 EDT Normal [facility] Phone Msfabiana 04-25-2023 Phone Msg - From: Claudette Prieto To: VIJAY SORIANO CNP; Sent: 04/25/2023 14:03:45 EDT Subject: Cytotec Caller Name: YUE HIGHTOWER; Caller Number: H Patient scheduled for IUD removal & reinsertion for tomorrow (04/26/23). Please send script for Cytotec to pharmacy on file. If you have any questions, patient can be reached at [phone]. Thank you. From: VIJAY SORIANO CNP To: [...] no further questions at this time. Normal [facility] Basophil percentageon 2021 Basophil percentage 5-10 SEEN /hpf 0-5 [facility] Work Phone: Bilirubin Test strip Ql (U)o n 09-08-2022 Bilirubin Ql (U) Negative Negative [facility] Work Phone: Ketones Test strip Ql (U)on 09-08-2022 Ketones Ql (U) Negative Negative [facility] Work Phone: Mucus LM Ql (Urine sed)on Mucus Ql (Urine sed) 0 SEEN /hpf [facility] Work Phone: Nitrite Test strip Ql (U)on 09-08-2022 Nitrite Ql (U) Positive Negative [facility] Work Phone: Protein Test strip Ql (U)on 09-08-2022 Protein Ql (U) 15 mg/dl Negative [facility] Work Phone: Squamous epithelial cells de tection in urine sediment by light microscopyon 09-08-2022 Epithelial cells.squamous LM Ql (Urine sed) 0 SEEN /hpf 5-10 [facility] Work Phone: Urine blood detectionon 08-15 RBC Ql (U) 50 /ul Negative [facility] Work Phone: RBC Ql (U) 0-5 SEEN /hpf 0-5 [facility] Work Phone: Urine clarityon 09-08-2022 Clarity (U) Sl. Cloudy Clear [facility] Work Phone: Urine color determinationon 09-08-2022 Color (U) Yellow Yellow [facility] Work Phone: Urine glucose detectionon Glucose Ql (U) Normal mg/dl Normal [facility] Work Phone: Urine leukocyte esterase det ection by dipstickon 09-08-2022 Leukocyte esterase Test strip Ql (U) 500 /ul Negative [facility] Work Phone: Urine pHon 09-08-2022 pH (U) 7.0 [pH] 5.0 - 8.0 [facility] Work Phone: Urine sediment bacteria coun t by microscopy (number/high power field)on 09-08-2022 Bacteria LM.HPF (Urine sed) [#/Area] 2 /[HPF] None Seen [facility] Work Phone: Urine specific gravity measu rementon 09-08-2022 Specific gravity (U) [Rel density] 1.010 1.002-1.030 [facility] Work Phone: Urobilinogen Auto test strip Ql (U)on 09-08-2022 Urobilinogen Ql (U) Normal mg/dl Normal [facility] Work Phone: CNOVon 06-18-2020 CNOV Office Visit (OBGWMA ) YUE HIGHTOWER ([id number]) 1980 F Date Time Provider Department 06/18/20 [...] bleeding, pelvic pain, menstrual or menopausal problems SENIOR SOFTWARE QA ENGINEER: Denies any abnormal vaginal discharge, irregular bleeding, [...] exam in one year. - PAP, CYTO SENIOR SOFTWARE QA ENGINEER 2. Encounter for gynecological examination (general) (routine) [...] (routine) without abnormal findings [Z01.419] Order(s):PAP, CYTO SENIOR SOFTWARE QA ENGINEER [[id number]] Order #: [id number] Prescriptions as of 06/18/2020 Sig: COPPER 380 [...] Status:Closed by SARAH AHMADI MD on 06/18/20 [facility] PROGRESSon 06-18-2020 PROGRESS HNO ID: [id number] Author: Sarah Ahmadi Service: ? Author Type: [...] bleeding, pelvic pain, menstrual or menopausal problems SENIOR SOFTWARE QA ENGINEER: Denies any abnormal vaginal discharge, irregular bleeding, [...] exam in one year. - PAP, CYTO SENIOR SOFTWARE QA ENGINEER 2. Encounter for gynecological examination (general) (routine) [...] 996.32, ICD10: T83.32XA Sarah Ahmadi MD Normal [facility] Pap,Cyto Gynon 06-18-2020 Pap,Cyto Aluminum Siding Mechanic Test performed at [address] [address] NAME: MARÍA HIGHTOWERA REQUESTING: SARAH AHMADI M.D. SPECIMEN: TP CX [...] 30, 2020 Page 1 of 1 Normal [facility] Comment on above: Performed By: #### C OP #### [place] [address] OBSOLETEon 06-12-2020 OBSOLETE Refill (AGOBST) YUE HIGHTOWER ([id number]) 1980 F Date Time Provider Department 06/12/20 [...] by SARAH AHMADI MD on 06/12/20 Normal [facility] Culture, urine Bacteria identified Cx Nom (U) Presumptive E. coli [facility] Work Phone: Vital Signs Date Time Vital Sign Value Performing Clinician Faci lity 11-10-2023 14:57-0500 Body height 149.86 cm DO Aditi Diorer Work Phone: [facility] 11-10-2023 14:57-0500 Body mass index (BMI) [Ratio] 29.2 kg/m2 DO Aditi Celayanger Work Phone: [facility] 11-10-2023 14:57-0500 Body weight 65.77 kg DO Aditi Celayanger Work Phone: [facility] Encounters Encounter Date Encounter Type Care Provider Facility Start: 08-02-2025 ambulatory Ilana Wallace Facility:[facility] Start: 07-02-2025 End: 07-02-2025 ambulatory Ilana Gonsalez [employer] [facility] Work Phone: -Laboratory Specimen Start: 07-02-2025 End: 07-02-2025 Patient encounter procedure Ilana Gonsalez [employer] [facility] -Laboratory Specimen Work Phone: Start: 07-01-2025 End: 07-02-2025 ambulatory Ilana Gonsalez [employer] Work Phone: -Laboratory [facility] Start: 07-01-2025 End: 07-01-2025 Patient encounter procedure Ilana Gonsalez [employer] [facility] -Laboratory [facility] Start: 07-01-2025 End: 07-01-2025 ambulatory Ilana Gonsalez Facility:[facility] Start: 11-27-2024 End: 11-27-2024 ambulatory Ilanaarslan Gonsaelz [employer] Work Phone: [facility] Work Phone: Start: 11-27-2024 End: 11-27-2024 Patient encounter procedure Ilana Gonsalez [employer] Work Phone: -Laboratory Work Phone: Start: 11-27-2024 End: 11-27-2024 ambulatory Ilana Gonsalez Facility:[facility] Start: 01-02-2024 End: 01-03-2024 ambulatory VIJAY [facility] Facility:[facility] Start: 12-22-2023 End: 12-22-2023 ambulatory DO Aditi Almaraz Work Phone: [facility] Work Phone: Start: 12-22-2023 End: 12-22-2023 Discharged Recurring DO Aditi Almaraz Work Phone: [facility]-Physical Therapy Work Phone: Start: 11-10-2023 End: 11-10-2023 Patient encounter procedure DO Aditi Almaraz Work Phone: [facility] Radiology Start: 06-24-2023 End: 06-24-2023 ambulatory [facility] Work Phone: Start: 06-24-2023 End: 06-24-2023 Patient encounter procedure [facility]-Outpatient Breast Imaging Work Phone: Start: 05-19-2023 End: 05-19-2023 ambulatory [facility] Work Phone: Start: 05-19-2023 End: 05-19-2023 Patient encounter procedure [facility]-Laboratory, [facility] Start: 04-26-2023 End: 04-27-2023 ambulatory VIJAY SORIANO CNP Facility:[facility] Start: 04-25-2023 ambulatory ALYX ASHLEY Facility: [facility] Start: 09-08-2022 End: 09-08-2022 ambulatory [facility] Work Phone: Start: 09-08-2022 End: 09-08-2022 Patient encounter procedure [facility]-Laboratory, Specimen Start: 06-22-2022 End: 06-22-2022 Patient encounter procedure [facility]-Outpatient Breast Imaging Start: 06-18-2020 End: 06-18-2020 Subsequent hospital visit by physician Alyx Ashley LAB EKG [facility] Comment on above: Encounter for screen ing for malignant neoplasm of cervix [Z12.4] Procedures Date Procedure Procedure Detail Performing Clinician Start: 07-02-2025 Clostridium difficil e detection Ilana Gonsalez [employer] Work Phone: Start: 07-02-2025 Lactoferrin measurement Ilana Gonsalez [employer] Work Phone: Start: 07-02-2025 Nucleic acid assay Kelly gray Wallace [employer] Work Phone: Start: 07-02-2025 Iadna-dna/rna gi pth gn multiplex probe tq 6-11 Ilana Gonsalez [employer] Work Phone: Start: 11-10-2023 Radiologic examinati on of knee DO Aditi Almaraz Work Phone: Start: 06-24-2023 Screening mammography Start: 06-22-2022 Screening mammography Bacteria identified in Urine by Culture Urine culture Plan of Treatment Date Care Activity Detail Author Start: 07-02-2025 Ova and Parasites Ova and Parasites [facility] Start: 02-29-2024 HPV TESTING HPV TESTING [facility] Start: 02-29-2024 PAP TESTING PAP TESTING [facility] Start: 11-10-2023 Patient referral [facility] Work Phone: Start: 07-15-2020 Influenza vaccination INFLUENZA (#1) [facility] Start: 2001 Urine microalbumin profile DTA P,TDAP,TD (1 - Tdap) [facility] Start: 01-27-2000 HEPATITIS C SCREENING HEPATITIS C [facility] Start: 01-27-2000 HIV SCREENING HIV SCREENING [facility] Ova OR parasites identification [facility] Patient referral [facility] Work Phone: Immunizations Immunization Date Immunization Notes Care Provider Alicia yu 09-03-2018 Influenza, injectabl e, Madin Chloé Canine Kidney, preservative free, quadrivalent [facility] 07-07-2016 influenza, injectabl e, quadrivalent, contains preservative [facility] 04-12-2016 RHO(D) immune globul in- IV or IM [facility] 08-09-2014 influenza, injectabl e, quadrivalent, preservative free [facility] 08-08-2014 RHO(D) immune globul in- IV or IM [facility] Payers Date Payer Category Payer Self-pay [id number] 2024 Unknown [id number] 2019 Unknown MMO MMO [employer] [id number] 2019-Present PPO [id number] 2008 Unknown 1980 Unknown [id number] 1980 Unknown [id number] 1980 Unknown [id number] Unknown [id number] Unknown [id number] Unknown [id number] Unknown [id number] Unknown [id number] Social History Date Type Detail Facility Start: 06-18-2020 End: 11-10-2023 Tobacco smoking status TXIS Never smoker [facility] Start: 06-18-2020 Tobacco use and exposure Never used [facility] Start: 06-18-2020 Alcohol intake Current non-dr francis of alcohol (finding) [facility] Sex Assigned At Not on file [facility] Exposure to SARS-CoV -2 (event) Not sure [facility] Start: 1980 Sex Assigned At Female [facility] Start: 11-10-2023 Tobacco smoking stat [facility] Unknown if ever smoked [facility] Start: 02-15-2025 Sex Female (finding) [facility] Discharge summary 12-22-2023 Note Date & Type Note Facility 12-22-2023 Discharge summary Note Date/Time December 22, 2023 5:09pm [facility] Physical Therapy [facility] [address] [place] [address] / REHABILITATION SERVICES DISCHARGE SUMMARY MR#: [id number] Acct: [id number] Name: YUE HIGHTOWER Rep #: : [id number] From: Edd JNOT, OCS, CSCS Referring Dr.: Dr. Wes Rowell MD Status: REG RCR Insurance: [facility] SELF PAY INSURANCE Discharge Summary D/C summary: [...] please feel free to call me at [phone]. Thank you for the referral of thispatient. Sincerely, Edd Wilder, DANAYT, OCS, CSCS Balance/Gait/Functional tests Balance/Special Test Scores Lower Extremity Functional Score: 80 Improvement % Improvement: 100 <Electronically signed by Edd Wilder DPT, OCS, CSCS> 12/22/23 1709 CC: Dr. Wes Rowell MD; Aditi Almaraz, DO ~ EBG Signed [facility] Work Phone: Evaluation note Note Date & Type Note Facility Evaluation note No assessment information availa ble [facility] Work Phone: Evaluation note Note Date & Type Note Facility Evaluation note Diagnosis Onset Date Left knee pain acute Right knee pain acute [facility] Work Phone: Reason for referral (narrative) Note Date & Type Note Facility Reason for referral (narrative) No reason for referral information available [facility] Work Phone: Summary Purpose Family [...] section and content) DATE CREATED AUTHOR 06/18/2020 [facility] DATE CREATED AUTHOR AUTHOR'S ORGANIZ ATION 06/30/2020 [facility] DATE CREATED AUTHOR AUTHOR'S ORGANIZ ATION 01/04/2024 [facility] DATE CREATED AUTHOR AUTHOR'S ORGANIZ ATION 08/01/2025 [facility] Source Comments (unrecognize d section and content) In the event this informatio n is protected by the Federal Confidentiality of Alcohol and Drug Abuse Patient Records regulations: The Federal rules restrict any use of the information to criminally investigate or prosecute any alcohol or drug abuse patient.[facility] Goals (unrecognized section and content) Goals may [...] Aditi Almaraz , DO Primary Care Provider, Referring Provider Active Wse Rowell MD Attending Provider Active Team Status: [...] Team Status: Inactive Member Role Status Dates Ilana Gonsalez NP-Adam Primary Care Provider Active Start: November 27, 2024 End: November 27, 2024 PRAVEEN BUNN Attending Provider Active Start: November 27, 2024 End: November 27, 2024 Team Status: Active Member Role/Relationship Status Dates LYUDMILA Gleason Primary Care Provider Active Team Status: Inactive Member Role/Relationship Status Dates LYUDMILA Gleason Primary Care Provider Active Start: July 01, 2025 End: July 01, 2025 LYUDMILA Gleason Attending Provider Active St art: July 01, 2025 End: July 01, 2025 LYUDMILA Gleason Referring Provider Active St art: July 01, 2025 End: July 01, 2025 Team Status: Active Member Role/Relationship Status Dates LYUDMILA Gleason Primary Care Provider Active Start: July 02, 2025 LYUDMILA Gleason Attending Provider Active St art: July 02, 2025 LYUDMILA Gleason Referring Provider Active St art: July 02, 2025 Team Status: Inactive Member Role/Relationship Status Dates LYUDMILA Gleason Primary Care Provider Active Start: July 02, 2025 End: July 02, 2025 LYUDMILA Gleason Attending Provider Active St art: July 02, 2025 End: July 02, 2025 LYUDMILA Gleason Referring Provider Active St art: July 02, 2025 End: July 02, 2025 FOR RECORDS PERTAINING TO PATIENTS WHO ARE [...] BE BASED ON THE PRIMARY CLINICAL RECORDS. [facility] [employer] [facility]. provides no warranty or guarantee of the accuracy or completeness of information in this document.
== END | disposition home or self-care (01) ==
LOC: OPBI 07:09
PROVIDERS: PCP Nurse Practitioner Family; Referring Provider Nurse Practitioner Family; Visit Provider Nurse Practitioner Family
DX: Z12.31 Encounter for screening mammogram for malignant neoplasm of breast (principal)
CPT/HCPCS: 77063; 77067